=== PATIENT | male | born 1950 | race Caucasian/White ===

== ENCOUNTER 2019-03-07 06:00 | Inpatient (IN) | payer OTHER ==
--- NOTE | 2019-03-07 06:51 | CT ---
CT ABDOMEN AND PELVIS WITHOUT IV CONTRAST: INDICATIONS: History of UTI with hypertension, coronary artery disease, chronic kidney disease, GERD, and Cronin pl acement prior to arrival. FINDINGS: There are small bilateral pleural effusions and bibasilar atelectasis. There are layered gallstones within a mildly to moderately distended gallbladder. There is mild ascites surrounding the unopacifi ed liver. The spleen is slightly enlarged, measuring 14.9 cm. The liver measures 17.6 cm. There is prominent bilateral hydronephrosis. Exophytic, mildly hyperdense lesion involving the superior pole of the right kidney, measuring 1.3 cm, incompletely characterized. There is prominent distention of the bladder. No Cronin catheter is identified within the bladder. There is dilatation of the Cronin catheter within the penis. There is distention of the proximal penile, bulbar urethra. There is mild free fluid in the abdomen and pelvis. The colon and small bowel are of normal caliber. There is a normal appendix in the right lower quadr ant. There is scattered degenerative and osteoarthritic change. IMPRESSION: 1. Placement of the Cronin catheter within the penile urethra. Recommend repositioning. 2. Prominent distention of the bladder with prominent bilateral hydronephrosis is suspicious for meaghan dder outlet obstruction, likely from enlarged prostate. 3. Exophytic, mildly hyperdense lesion involving the superior pole of the right kidney, measuring 1. 3 cm, incompletely characterized. Follow-up renal ultrasound is recommended. 4. Mild hepatosplenomegaly. 5. Cholelithiasis with mild distention of the gallbladder. 6. Mild bilateral pleural effusions, ascites, and mild anasarca. Findings called to Dr. Armstrong at 6:43 a.m. on 03/07/2019. CODE CR POS:
--- NOTE | 2019-03-07 09:03 | CT ---
Exam: Pelvic CT without contrast COMPARISON: 03/07/2019 FINDINGS: Interval advancement of the Cronin catheter. Distal tip now appears to be a in the distal prosthetic u rethra. Urinary bladder continues to be distended. Small focus of air in the nondependent portion of the urinary bladder is noted. There is marked dilatation of the penile urethra small pockets of ai r attenuation. There is evidence of free fluid in the pelvis with evidence of pelvic and lower abdominal mesenteric fat stranding. Stable enlarged prostate gland. IMPRESSION: Slight interval advancement of the Cronin catheter. Distal tip is now within the distal pr osthetic urethra. Repositioning and advancement is recommended.
--- NOTE | 2019-03-07 09:21 | PDOC.FPRHP ---
- History of Present Illness Chief Complaint: Testicular pain History of Present Illness: Symptoms began acutely on 07/01/2018. He woke up and could not void, states that his penis was swollen. However, when questioned more about this admission, he states that on this event, he states that he chronically has a kaur catheter in place since July. He states that it should be changed (By Myron ) q monthly, but it has been replaced sometimes up to every 3 months. Had a new kaur placed on 02/27 and was told he had a UTI, was prescribed Keflex 500BID. . However, this procedure was not done here and we do not have records. On Tuesday (03/02) he began feeling bad and decreasing urinary output through his kaur, he was seen in the intermediate and states they disregarded his symptoms. Last night he went to medical in the intermediate and they decided to send him in. Upon arrival to the ED, they removed the kaur and had extreme difficulty replacing it. They were able to place one which is now draining orange/reddish urine. ED Course: Babb: Zosyn 2.25g, 2L NS, Morphine, Zofran. - Allergies/Adverse Reactions Allergies Allergy/AdvReac Type Severity Reaction Status Date / Time Sulfa (Sulfonamide Allergy Verified 03/07/19 11:05 Antibiotics) GRAPE JELLY Allergy Intermediate Hives Uncoded 03/07/19 17:52 - Home Medications Medication Instructions Recorded Confirmed Type Aspirin [Ecotrin] 81 mg PO DAILY 03/07/19 03/07/19 History Cephalexin 500 mg PO Q12H 03/07/19 03/07/19 History Ferrous Sulfate [Feosol] 325 mg PO BID 03/07/19 03/07/19 History Lisinopril 40 mg PO DAILY 03/07/19 03/07/19 History Omeprazole 20 mg PO DAILY 03/07/19 03/07/19 History Pravastatin Sodium [Pravachol] 20 mg PO HS 03/07/19 03/07/19 History Terazosin HCl 5 mg PO HS 03/07/19 03/07/19 History Triamcinolone Acetonide 1 applic TOP BID 03/07/19 03/07/19 History [Triamcinolone Acetonide 0.1% Lotion] Comments: asa TABLET : Strength - 81 mg : ORAL Patient Dose: 81 mg Oral once a day. benzoyl peroxide GEL (GRAM) : Strength - 10 % : TOPICAL Patient Dose: Unknown. keflex CAPSULE : Strength - 500 mg : ORAL Patient Dose: 500 mg Oral 2 times a day. ferrous sulfate TABLET : Strength - 325 mg (65 mg iron) : ORAL Patient Dose: 325 mg Oral 2 times a day. lisinopril TABLET : Strength - 40 mg : ORAL Patient Dose: 40 mg Oral once a day. omeprazole CAPSULE,DELAYED RELEASE (ENTERIC COATED) : Strength - 20 mg : ORAL Patient Dose: 20 mg Oral once a day. pravastatin TABLET : Strength - 20 mg : ORAL Patient Dose: 20 mg Oral once a day. terazosin CAPSULE : Strength - 5 mg : ORAL Patient Dose: 5 mg Oral once a day. triamcinolone CREAM (GRAM) : Strength - 0.1 % : TOPICAL Patient Dose: Unknown. - History PMHx: DC age 55, (2006) HTN CKD GERD PSHx: None FHx: Cancer - chest, lung Social: Denies smoking, etoh, or drug use. - Review of Systems General: reports: fever/chills. denies: weight/appetite/sleep changes, night sweats Eyes: denies: eye pain, vision changes ENT: denies: nasal congestion, rhinorrhea Respiratory: denies: cough, congestion, shortness of breath Cardiovascular: reports: chest pain, other (diaphoresis) Gastrointestinal: reports: abdominal pain. denies: nausea, vomiting, diarrhea, constipation Genitourinary: reports: dysuria, other (groin pain,). 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 Poor dentition, dry mucus membranes Neck: supple, FROM, no LAD, no thyromegaly Chest: no-tender to palpation, no lesions Heart: RRR, normal S1/S2, no murmurs/rubs/gallops, pulses present, no edema Lungs: CTAB, no respiratory distress, good air movement, no rales/rhonchi, no wheezing, no retractions Abdomen: soft, non-tender, bowel sounds present FMR H&P: Results - Labs Lab results: Laboratory Tests 03/07/19 03/07/19 03/07/19 03:45 03:45 03:45 WBC 17.8 H Hgb 11.1 L Hct 33.8 L Plt Count 350 Neutrophils % 91.5 H Sodium 132 L Potassium 3.4 L Chloride 94 L Carbon Dioxide 17 L Anion Gap 24 H BUN 90 H Creatinine 8.81 H Estimated GFR (MDRD) 6 Glucose 128 H Lactic Acid 4.1 H* - Radiology Interpretation Chest x-ray Status: report reviewed by me (No acute cardiopulmonary process.) CT scan - abdomen Status: report reviewed by me (1. Placement of the Kaur catheter within the penile urethra. Recommend repositioning. 2. Prominent distention of the bladder with prominent bilateral hydronephrosis is suspicious for meaghan dder outlet obstruction, likely from enlarged prostate. 3. Exophytic, mildly hyperdense lesion involving the superior pole of the right kidney, measuring 1. 3 cm, incompletely characterized. Follow-up renal ultrasound is recommended. 4. Mild hepatosplenomegaly. 5. Cholelithiasis with mild distention of the gallbladder. 6. Mild bilateral pleural effusions, ascites, and mild anasarca) FMR H&P: A/P - Plan Sepsis 2/2 UTI 2/2 Obstructive Uropathy IV Antibiotics: Meropenem (03/07) Vancomycin (03/07) Was given Zosyn in ED. (03/07) IV Fluids: LR 125mL Repeat lactic acid stat AM CBC, CMP, Procal Urology consulted, appreciate recommendations HTN Restart Lisinopril 40mg ASA 81mg HLD Pravastatin 20mg BPH Terazosin 5mg GERD Omeprazole 20mg Disposition/LOS: Dispo: Inpatient, stable VTE: SCDs Code: Full Diet: Regular FMR H&P: Upper Level - Pertinent history 68 year old male presents from intermediate with urinary retention and abdominal pain since Tuesday. Patient with chronic indwelling kaur catheter since July after hospitalization for urinary retention secondary to BPH. Patient reports that he his supposed to have his kaur changed every 2 months, but that rarely happens in the intermediate. He was having dysuria, and so he had a UA done which revealed a UTI. His kaur was changed out on 02/27 and he was started on Keflex. The pain progressed and was unbearable by Tuesday. He started to feel so bad, that he wasn't even able to make it to gets his medications. He was brought in to [place] ED and subsequently transferred to [place] for sepsis 2/[address]/ Abdomen was performed which revealed kaur catheter inflated in urethra. An attempt was made at repositioning and was unsuccessful, so Urology was consulted and via cystoscopy was able to place kaur catheter successfully. Urine immediately started draining, and patient is already feeling much better. He endorses some chest pain associated with riding along via transport. He does endorses weakness, but denies muscle aches or cramps. - Pertinent findings General: Alert and oriented. No acute distress. In metal handcuffs HEENT: Left eye made of glass, ptosis of left eye Card: RRR, No murmurs Resp: CTA-BL, No acute respiratory distress Abd: Mildly tender to palpation in suprapubic region. Soft. Ext: No edema, pulses 2+ Skin: Warm and dry - Plan Date/Time: 03/07/19918 IRosa , have evaluated this patient and agree with findings/plan as outlined by quality assurance intern resident. Pertinent changes/additions are listed here. Sepsis 2/2 UTI from obstructive uropathy (BPH) - WBC 17, LA 4.1 - Fluid resuscitation in outside ED - Patient started on Zosyn in ED, will switch to meropenem and vancomycin given complicated UTI in setting of obstructive uropathy with resulting renal failure - Will adjust antibiotics pending urine culture results - Procalcitonin significantly elevated at 22 - Continue IVF - Will start flomax - Will start patient on finesteride which may help to decrease size of prostate over time; will obtain baseline PSA prior to initiation of finesteride - Continue to monitor kidney function - Kaur catheter in place and draining effectively at this time - Repeat LA Acute renal failure 2/2 obstructive uropathy - Significantly enlarged prostate - Fluid resuscitation - No electrolyte derangements at this point in time - Continue to monitor electrolytes and kidney function - Urology consulted; appreciate recs - Given complicated UTI 2/2 obstructive uropathy, will initiate broad spectrum antibiotics with meropenem and vancomycin - Will start flomax - Will start finesteride with intent to decrease size of prostate over time; will obtain baseline PSA prior to initiation of medication - Patient with CKD at baseline, but not certain what stage CKD - Uncertain of baseline HTN: - Continue home BP medications CAD - Continue home medications GERD - Continue home medications DVT PPX: SCD's Code Status: Full Dispo: Admit to medical. Anticipate LOS >48 hours.
[2019-03-07] MEDS ORDERED: Acetaminophen 325 MG TAB PO PRN (11:38)
[2019-03-07] MEDS ORDERED: Senokot S 8.6-50 MG TAB PO PRN (11:38)
--- NOTE | 2019-03-07 11:43 | CON ---
DATE OF CONSULTATION: 03/07/2019 REASON FOR CONSULTATION: Urinary retention. HISTORY OF PRESENT ILLNESS: Mr. Mckenzie is a 68-year-old male with history of BPH, followed by [facility] Urology, workup in progress for TURP, currently on hold due to workup for cardiac issues. He has had chronic indwelling Cronin catheter, switched every 4 weeks until surgical intervention. He states that the catheter was changed on February 27 has been draining, however, has decreased output for the last few days. Therefore, he presented to the emergency room. CT of the abdomen and pelvis was obtained demonstrating bilateral hydro with Cronin catheter in the penile urethra. Catheter was subsequently removed by ER Urology consultation advised secondary to above. He states that there is no pain with catheter placement by the previous staff, however, has had occasional decreased output from the Cronin catheter per the patient. Currently, he denies significant discomfort, appears comfortable. Cooperative to physical exam. He is a prisoner, guards at bedside. PAST MEDICAL HISTORY: CAD hypertension, chronic kidney disease, history of hematuria, BPH. PAST SURGICAL HISTORY: None. PSYCHIATRIC HISTORY: None. SOCIAL HISTORY: Denies alcohol use or illicit drugs. No smoking history. Lives at home. Currently in longterm facility. ALLERGIES: PEANUT BUTTER AND SULFA. HOME MEDICATIONS: Include: 1. Baby aspirin. 2. Benzoyl peroxide. 3. Cephalexin 500 mg b.i.d. for UTI. 4. Iron. 5. Lisinopril. 6. Omeprazole. 7. Pravastatin. 8. Terazosin 5 mg. 9. Triamcinolone cream. PHYSICAL EXAMINATION: VITAL SIGNS: Stable. His pain was rated at 10. Currently, he appears quite comfortable. HEENT: Grossly unremarkable. Poor dentition. Left eye is glassed. HEART: Regular rate. LUNGS: Clear. ABDOMEN: Suprapubic distention noted. No rigidity. No rebound. : Meatus is grossly unremarkable, testes descended. EXTREMITIES: No cyanosis, clubbing, or edema. NEUROLOGIC: No gross focal deficits. PERTINENT LABORATORY DATA: Previous urine culture demonstrated Pseudomonas sensitive to Levaquin, tobramycin, and Citrobacter as well. He was given Zosyn in the ER. CT of the abdomen and pelvis without contrast demonstrates Cronin catheter in the penile urethra, spleen is slightly enlarged, mildly exophytic hyperdense right renal cyst measuring 1.3 cm, incompletely characterized. Prominent distention of the bladder. Cronin catheter not seen within the bladder, balloon seen in the penile urethra with distention of the proximal penile bulbar urethra. I passed a 16-Swiss Cronin catheter and able to pass it without significant issues. 10 mL insufflated no pain. Decreased urine output. As such, I irrigated the Cronin, which irrigates however, urine output is not robust. Therefore, stat CT of the pelvis advised to check placement of Cronin catheter. IMPRESSION: 1. Mr. Mckenzie is a 68-year-old male with history of coronary artery disease. 2. History of BPH, chronic retention with indwelling Cronin catheter every 4 weeks change at the facility, followed by [facility] Urology, workup in progress for transurethral resection of the prostate. The patient currently presents with urinary tract infection, malfunctioning Cronin catheter, likely traumatic pull per the patient versus chronic displacement of urethral Cronin catheter. There is no significant hematuria, but pyocystitis noted with Cronin catheter placement. Await CT. Recommend diaz culture and appropriate antibiotic therapy. Addendum, stat CT reviewed demonstrating Cronin catheter again in the penile urethra. This was deflated, I did try to pass a coud 20 Swiss, was able to make my way to the level of the prostate however difficulty passing. Therefore patient transition to bedside cystoscopy. Please see procedure note Job ID: [id number] MTDD
--- NOTE | 2019-03-07 12:06 | HP ---
I have discussed the case with Dr. Lucie Aaron. I have examined the patient. I agree with her assessment and plan. HISTORY OF PRESENT ILLNESS: Briefly, Mr. Mckenzie is a 68-year-old man, [facility], who has had symptoms of BPH since last June. He stated that his initial symptom was the fact that he "could not pee." Over the last 9 months, he has had Cronin catheter placement for his BPH causing urinary retention. They were unable to re-access his Cronin earlier today and he was transferred to our system. A Cronin has been placed and he was notable on CT exam to have a significant bilateral uropathy secondary to his BPH. He also appears to have urinary tract infection and possible sepsis and will be admitted for antibiotics and Urology consultation. PHYSICAL EXAMINATION: VITAL SIGNS: He is awake and alert. His blood pressure is currently 100/40, pulse rate is 85, respirations 16. He is currently afebrile and his room air O2 saturation is 100%. GENERAL: Again, he is oriented, awake and alert. EAR, NOSE, AND THROAT: No erythema or exudate. NECK: Supple. CARDIAC: Heart rhythm, regular. No gallop or murmur noted. LUNGS: Clear. No rales or wheezes. No respiratory distress. ABDOMEN: Flat and soft. No guarding, rebound, or rigidity. NEUROLOGIC: No focal deficits. LABORATORY RESULTS: Still pending. IMAGING STUDIES: His abdominal CT does show prominent distention of the bladder with prominent bilateral hydronephrosis, suspicious for bladder outlet obstruction, likely secondary to BPH. ASSESSMENT: Bilateral uropathy secondary to BPH with possible urinary tract infection and sepsis. PLAN: Admit. Place Cronin. Consult Urology. Begin broad-spectrum antibiotics. Job ID: [id number]
--- NOTE | 2019-03-07 13:17 | OP ---
DATE OF PROCEDURE: 03/07/2019 Bedside Local procedure PREOPERATIVE DIAGNOSES: 1. History of benign prostatic hyperplasia, recurrent urinary tract infection. 2. Malplaced urethral Cronin catheter POSTOPERATIVE DIAGNOSES: 1. History of benign prostatic hyperplasia, recurrent urinary tract infection. 2. Malplaced urethral Cronin catheter. PROCEDURE PERFORMED: Bedside flexible cystoscopy, 18-Swedish Councill tip Cronin catheter placement over guidewire. ANESTHESIA: Local. DESCRIPTION OF PROCEDURE: A flexible cystoscope was passed after sterile prep. Upon entering the urethra, there was [id number] debris within the urethra. Visualization was poor. However, I was able to find my way to the level of the prostatic urethra. Evaluation of the penile urethra was suboptimal due to significant debris. The prostate urethra was identified, large prostate noted. The scope was passed to the level of the bladder and a 0.35 Super Stiff wire was placed into the bladder. A 20-Swedish Hume tip Cronin catheter was passed over a guidewire assist and demonstrating purulent urine output. He tolerated the procedure well. Catheter was secured. 10 mL insufflated. Job ID: [id number] [facility]
[2019-03-07 13:35] LABS: Lactic Acid 1.2 mmol/L (0.5-2.2)
[2019-03-07] MEDS ORDERED: Meropenem 1 GM in Sodium Chloride 0.9% 100 ML IVPB SCH (14:00)
[2019-03-07] MEDS ORDERED: Heparin 1,000 UNITS/ML VIAL ONE (15:00)
[2019-03-07 15:05] VITALS: BMI 25.0
[2019-03-07] MEDS ORDERED: Vancomycin HCl 1.75 GM in Sodium Chloride 0.9% 500 ML IVPB SCH ×2 (16:00→21:00)
[2019-03-07] MEDS: Lactated Ringer's 1,000 ML IV SCH ×2 (16:36→20:09)
[2019-03-07] MEDS ORDERED: MEROPENEM 1 GM/50 ML 1 GM in Premix Bag 1 BAG IVPB SCH (17:00)
[2019-03-07] MEDS: Tamsulosin HCl 0.4 MG CAP PO SCH (20:08)
[2019-03-07] MEDS: Phenazopyridine HCl 97.5 MG TABLET PO PRN (22:49)
[2019-03-08] MEDS ORDERED: Meropenem 500 MG in Sodium Chloride 0.9% 100 ML IVPB SCH (05:00)
[2019-03-08] MEDS: Lactated Ringer's 1,000 ML IV SCH ×4 (05:20→20:23)
[2019-03-08] MEDS: Meropenem 500 MG in Sodium Chloride 0.9% 100 ML IVPB SCH ×4 (05:27→17:59)
--- NOTE | 2019-03-08 05:47 | PDOC.FM ---
- Subjective Subjective: Patient doing well this morning, afebrile overnight. Denies cp, sob. Reports that his pain has improved, although he is till having some tenderness to his abdomen. Urine output appears bloody, likely 2/2 trauma from kaur yesterday. - Objective Vital Signs & Weight: Vital Signs (12 hours) Temp Pulse Resp BP Pulse Ox 03/08/19 04:00 98.0 F 90 20 102/60 94 L 03/08/19 00:00 99.0 F 87 20 102/60 94 L 03/07/19 19:52 94 L 03/07/19 19:03 98.2 F 95 20 113/61 94 L Weight Weight 81.448 kg I&O: 03/06/19 03/07/19 03/08/19 06:59 06:59 06:59 Intake Total 810 Output Total 2350 Balance -1540 Result Diagrams: 03/08/19 06:17 03/08/19 06:17 Phys Exam - Physical Examination Constitutional: NAD HEENT: moist MMs Left eye-glass Neck: supple, full ROM Respiratory: no wheezing, clear to auscultation bilateral Cardiovascular: RRR, no significant murmur Gastrointestinal: positive bowel sounds ttp lower abdomen Musculoskeletal: no edema, pulses present Neurological: normal sensation, moves all 4 limbs Lymphatic: no nodes Psychiatric: normal affect, A&O x 3 Skin: normal turgor, cap refill <2 seconds Dx/Plan (1) Obstructive uropathy Code(s): N13.9 - OBSTRUCTIVE AND REFLUX UROPATHY, UNSPECIFIED Status: Acute (2) BPH (benign prostatic hyperplasia) Code(s): N40.0 - BENIGN PROSTATIC HYPERPLASIA WITHOUT LOWER URINRY TRACT SYMP Status: Acute (3) Sepsis due to urinary tract infection Code(s): A41.9 - SEPSIS, UNSPECIFIED ORGANISM; N39.0 - URINARY TRACT INFECTION, SITE NOT SPECIFIED Status: Acute (4) GERD (gastroesophageal reflux disease) Code(s): K21.9 - GASTRO-ESOPHAGEAL REFLUX DISEASE WITHOUT ESOPHAGITIS Status: Acute (5) Acute on chronic kidney failure Code(s): N17.9 - ACUTE KIDNEY FAILURE, UNSPECIFIED; N18.9 - CHRONIC KIDNEY DISEASE, UNSPECIFIED Status: Acute (6) CAD (coronary artery disease) Code(s): I25.10 - ATHSCL HEART DISEASE OF [place] CORONARY ARTERY W/O ANG PCTRS Status: Acute (7) HTN (hypertension) Code(s): I10 - ESSENTIAL (PRIMARY) HYPERTENSION Status: Acute - Plan Plan: 68M with PMHx of BPH, CKD (unknown stage), HTN, CAD, [place] (2006) admitted with sepsis 2/2 UTI 2/2 obstructive uropathy 2/2 BPH and acute on chronic renal failure #Sepsis 2/2 UTI from obstructive uropathy (BPH) - WBC 17>18.4 - LA 4.1>1.2 with fluids - Fluid resuscitation in outside ED - Patient started on Zosyn in ED, switched to meropenem and vancomycin given complicated UTI in setting of obstructive uropathy with resulting renal failure , continue - urine culture results pending, will alter abx accordingly - Procalcitonin significantly elevated at 22 then 27>28.36, will continue to monitor - Continue IVF - flomax started - finasteride started to help to decrease size of prostate over time -baseline PSA 8.97 - Continue to monitor kidney function -creatinine 8.81>6.19 - Kaur catheter in place and draining effectively at this time - Continue to follow CBC, LA, and procal #Acute renal failure 2/2 obstructive uropathy - Significantly enlarged prostate - creatinine 8.81>6.19 - Fluid resuscitation - No electrolyte derangements at this point in time - Continue to monitor electrolytes and kidney function - Urology consulted; appreciate recs - Given complicated UTI 2/2 obstructive uropathy, started on broad spectrum antibiotics with meropenem and vancomycin - flomax started - finasteride started - Patient with CKD at baseline, but not certain what stage #CKD - Uncertain of baseline, patient has unclear history #HTN: - BPs 100s-110s/60s, hold home meds at this time #CAD - Continue home medications #GERD - Continue home medications DVT PPX: SCD's Code Status: Full Dispo: Medical floor for IV abx for sepsis 2/2 uti 2/2 obstructive uropathy. Nephrology consulted, following recs. Anticipate LOS >48 hours.
[2019-03-08 06:44] LABS: #Lymphocytes 0.4 thou/uL (1.20-3.40); #Monocytes 0.7 thou/uL (0.11-0.59); #Neutrophils 17.2 thou/uL (1.40-6.50); %Eosinophils 0.2 % (0.0-10.0); %Lymphocytes 2.3 % (21.0-51.0); %Monocytes 3.9 % (0.0-10.0); %Neutrophils 93.7 % (42.0-75.0); Hemoglobin 9.4 g/dL (14.0-18.0); Mean Corpuscular HGB CONC 33.5 g/dL (32.0-36.0); Mean Corpuscular Hemoglobin 29.8 pg (27.0-31.0); Mean Corpuscular Volume 88.9 fL (78.0-98.0); Mean Platelet Volume 8.6 fL (7.4-10.4); Platelet Count 313 thou/uL (130-400); RBC Distribution Width 13.1 % (11.5-14.5); Red Blood Cell (RBC) Count 3.14 mill/uL (4.70-6.10); White Blood Cell (WBC) Count 18.4 thou/uL (4.8-10.8)
[2019-03-08 07:08] LABS: Anion Gap 18 mmol/L (10-20); BUN (Urea Nitrogen) 81 mg/dL (8.4-25.7); Calc. Creatinine Clearance 14 mL/min (70-130); Calcium 8.1 mg/dL (7.8-10.44); Carbon Dioxide 20 mmol/L (23-31); Chloride 104 mmol/L (98-107); Estimated GFR-MDRD 9; Glucose 109 mg/dL (80-115); Potassium 3.7 mmol/L (3.5-5.1); Sodium 138 mmol/L (136-145)
--- NOTE | 2019-03-08 07:42 | PRG ---
DATE OF SERVICE: 03/08/2019 SUBJECTIVE: The patient without complaints, feels well, appreciative of assistance yesterday regarding Cronin catheter placement. OBJECTIVE: VITAL SIGNS: Stable. He is afebrile. ABDOMEN: Soft. No rigidity. No rebound. : Cronin catheter adequately secured, demonstrating concentrated yellow urine with some sediment as expected. One bowel movement. PERTINENT LABORATORY DATA: Creatinine has decreased from 8.8 to 6.1. White count 18, hemoglobin 9.4, and platelet 319. Urine culture pending. MEDICATIONS: The patient is on, 1. Meropenem. 2. Vancomycin. IMPRESSION AND PLAN: 1. A 68-year-old prisoner, followed by [facility] Urology, workup in progress for transurethral resection of the prostate. The patient in the meantime has been getting his catheter changed every 4 weeks. Presented with urinary retention, pyocystitis with bilateral hydronephrosis and significant postvoid residual. Bedside cystoscopy yesterday demonstrated significant debris in the urethra, Cronin catheter placed over guidewire assist. The pre-existing Cronin catheter was inflated in his penile, urethra, chronicity unknown; however, it is likely that he has had misplaced catheter for quite some time as there is dilation of the urethra. 2. Acute renal failure, with bilateral hydronephrosis due to urinary retention, improving. The patient needs to be monitored for basic metabolic panel, postobstructive diuresis. He appears to be clinically stable. RECOMMENDATIONS: Await cx sen , the patient can be discharged back to facility, when medically stable and renal function improved. Urine culture must be finalized with appropriate antibiotic therapy. From urologic perspective, I recommend a minimum of 21 days of antibiotics as he presents with complicated UTI. Case Management consulted as he needs close followup with [facility] Urology, TURP is planned per pt however, stress test is pending. Stress test was per patient deferred as he presented with symptoms of UTI. The patient must have appointment with [facility] prior to discharge for coordination and continuity of care. The patient agrees. I will be off service until next Tuesday, on-call Urology will cover the patient for p.r.n. issues. Job ID: [id number] MTDD
[2019-03-08] MEDS: Finasteride 5 MG TAB PO SCH (08:58)
[2019-03-08 09:43] LABS: Vancomycin, Random 15.9 ug/mL (See Comment)
--- NOTE | 2019-03-08 12:01 | PRG ---
DATE OF SERVICE: 03/08/2019 Mr. Mckenzie had been admitted yesterday with urinary tract infection, sepsis, and bilateral obstructive uropathy secondary to BPH. He looks remarkably better this morning. He is currently afebrile with a blood pressure of 135/72. He is receiving broad-spectrum antibiotics. He has been seen by Urology and will at some point have a laser TURP. In the event clinically, he is markedly better from yesterday and we will continue with his medical management. Job ID: [id number]
[2019-03-08 13:49] LABS: Iron 13 ug/dL (65-175); Iron Binding Capacity, Total 90 mcg/dL (261-462); Transferrin, Serum 72 mg/dL (163-344)
[2019-03-08] MEDS: Ferrous Sulfate 325 MG TAB PO SCH (17:59)
[2019-03-08] MEDS: Tamsulosin HCl 0.4 MG CAP PO SCH (20:19)
[2019-03-08] MEDS ORDERED: Vancomycin HCl 1.75 GM in Sodium Chloride 0.9% 500 ML IVPB SCH (21:00)
[2019-03-09] MEDS: Meropenem 500 MG in Sodium Chloride 0.9% 100 ML IVPB SCH ×2 (04:20→16:19)
[2019-03-09] MEDS: Lactated Ringer's 1,000 ML IV SCH ×4 (04:22→18:30)
--- NOTE | 2019-03-09 05:56 | PDOC.FM ---
- Subjective Subjective: Patient doing well this morning. Reports that his pain has improved, though he has occasional lower abdominal pain when getting up out of bed. Agreeable to current plan of care. - Objective Vital Signs & Weight: Vital Signs (12 hours) Temp Pulse Resp BP BP Pulse Ox 03/09/19 04:00 98.0 F 92 18 128/63 93 L 03/09/19 00:16 98.1 F 95 18 113/60 92 L 03/08/19 20:00 97.9 F 97 18 141/71 H 94 L Weight Weight 81.448 kg I&O: 03/07/19 03/08/19 03/09/19 06:59 06:59 06:59 Intake Total 2810 2600 Output Total 4250 2250 Balance -1440 350 Result Diagrams: 03/09/19 05:36 03/09/19 05:36 Phys Exam - Physical Examination Constitutional: NAD HEENT: moist MMs poor dentition, l eye glass Neck: supple, full ROM Respiratory: no wheezing, clear to auscultation bilateral Cardiovascular: RRR, no significant murmur Gastrointestinal: soft ttp lower abdomen Musculoskeletal: no edema, pulses present Neurological: normal sensation, moves all 4 limbs Lymphatic: no nodes Skin: normal turgor, cap refill <2 seconds Dx/Plan (1) Obstructive uropathy Code(s): N13.9 - OBSTRUCTIVE AND REFLUX UROPATHY, UNSPECIFIED Status: Acute (2) BPH (benign prostatic hyperplasia) Code(s): N40.0 - BENIGN PROSTATIC HYPERPLASIA WITHOUT LOWER URINRY TRACT SYMP Status: Acute (3) Sepsis due to urinary tract infection Code(s): A41.9 - SEPSIS, UNSPECIFIED ORGANISM; N39.0 - URINARY TRACT INFECTION, SITE NOT SPECIFIED Status: Acute (4) GERD (gastroesophageal reflux disease) Code(s): K21.9 - GASTRO-ESOPHAGEAL REFLUX DISEASE WITHOUT ESOPHAGITIS Status: Acute (5) Acute on chronic kidney failure Code(s): N17.9 - ACUTE KIDNEY FAILURE, UNSPECIFIED; N18.9 - CHRONIC KIDNEY DISEASE, UNSPECIFIED Status: Acute (6) CAD (coronary artery disease) Code(s): I25.10 - ATHSCL HEART DISEASE OF [place] CORONARY ARTERY W/O ANG PCTRS Status: Acute (7) HTN (hypertension) Code(s): I10 - ESSENTIAL (PRIMARY) HYPERTENSION Status: Acute - Plan Plan: 68M with PMHx of BPH, CKD (unknown stage), HTN, CAD, [place] (2006) admitted with sepsis 2/2 UTI 2/2 obstructive uropathy 2/2 BPH and acute on chronic renal failure #Sepsis 2/2 UTI from obstructive uropathy (BPH) - WBC 17>18.4>24.5, though patient continues to look better clinically - LA 4.1>1.2 with fluids - Fluid resuscitation in outside ED - Patient started on Zosyn in ED, switched to meropenem and vancomycin given complicated UTI in setting of obstructive uropathy with resulting renal failure , continue -pharmacy to dose, vanc troughs ordered - urine culture results pending at [place] [facility] ([phone], micro lab [phone]) , currently growing >100k gram neg rods x 3 types, will alter abx accordingly when further growth/sensitivities are done - Procalcitonin significantly elevated at 22 then 27>28.36>14.25, will continue to monitor - Continue IVF - flomax started - finasteride started to help to decrease size of prostate over time -baseline PSA 8.97 - Continue to monitor kidney function -creatinine 8.81>6.19 - Cronin catheter in place and draining effectively at this time; urine orange in color but patient is on phenazopyridine - Urology, Dr. Mackay, saw patient 03/08 and rec: minimum 21 day antibiotic therapy and to have patient make appointment with [facility] urology prior to discharge for f/u on TURP. - Continue to follow CBC, LA, and procal #Acute renal failure 2/2 obstructive uropathy - Significantly enlarged prostate - creatinine 8.81>6.19>3.65 - Fluid resuscitation - No electrolyte derangements at this point in time - Continue to monitor electrolytes and kidney function - Urology consulted; see recs above - Given complicated UTI 2/2 obstructive uropathy, started on broad spectrum antibiotics with meropenem and vancomycin - flomax started - finasteride started - Patient with CKD at baseline, but not certain what stage #Anemia -H/H: 9.6/29.3 -iron 13, TIBC 90, transferrin 72, ferritin 798.92 -likely anemia of chronic disease, but possible mixed picture with iron of 13 ( low) -ferrous sulfate 325mg started today, continue to monitor #CKD - Uncertain of baseline, patient has unclear history #HTN: - BPs 110s-140s/60s-70s, continue to hold home meds at this time #CAD - Continue home medications #GERD - Continue home medications DVT PPX: SCD's Code Status: Full Dispo: Medical floor for IV abx for sepsis 2/2 uti 2/2 obstructive uropathy. Nephrology consulted, following recs.
[2019-03-09 06:14] LABS: Anion Gap 13 mmol/L (10-20); BUN (Urea Nitrogen) 57 mg/dL (8.4-25.7); Calc. Creatinine Clearance 23 mL/min (70-130); Calcium 8.2 mg/dL (7.8-10.44); Carbon Dioxide 22 mmol/L (23-31); Chloride 106 mmol/L (98-107); Estimated GFR-MDRD 17; Glucose 112 mg/dL (80-115); Potassium 3.2 mmol/L (3.5-5.1); Sodium 138 mmol/L (136-145)
[2019-03-09 06:37] LABS: Band 12 % (5-11); Hemoglobin 9.6 g/dL (14.0-18.0); Lymphocytes 1 % (21-51); MDiff Complete? YES; Mean Corpuscular HGB CONC 32.8 g/dL (32.0-36.0); Mean Corpuscular Hemoglobin 29.2 pg (27.0-31.0); Mean Corpuscular Volume 89.2 fL (78.0-98.0); Monocytes 2 % (0-10); Neutrophil 85 % (42-75); Platelet Count 349 thou/uL (130-400); RBC Distribution Width 13.2 % (11.5-14.5); Red Blood Cell (RBC) Count 3.29 mill/uL (4.70-6.10); White Blood Cell (WBC) Count 24.5 thou/uL (4.8-10.8)
[2019-03-09 09:13] LABS: Vancomycin, Random 29.7 ug/mL (See Comment)
[2019-03-09] MEDS ORDERED: Potassium Chloride 20 MEQ TAB PO SCH (09:15)
[2019-03-09] MEDS: Finasteride 5 MG TAB PO SCH (09:47)
[2019-03-09] MEDS: Ferrous Sulfate 325 MG TAB PO SCH ×2 (09:47→16:18)
[2019-03-09 10:13] LABS: ALT (SGPT) 8 U/L (8-55); AST (SGOT) 15 U/L (5-34); Alkaline Phosphatase 84 U/L (40-150); Anion Gap 18 mmol/L (10-20); BUN (Urea Nitrogen) 58 mg/dL (8.4-25.7); Bilirubin, Total 0.5 mg/dL (0.2-1.2); Calc. Creatinine Clearance 24 mL/min (70-130); Carbon Dioxide 22 mmol/L (23-31); Chloride 107 mmol/L (98-107); Estimated GFR-MDRD 17; Globulin 3.9 g/dL (2.4-3.5); Glucose 125 mg/dL (80-115); Potassium 3.5 mmol/L (3.5-5.1); Protein, Total 6.9 g/dL (5.8-8.1); Sodium 143 mmol/L (136-145)
--- NOTE | 2019-03-09 10:22 | PRG ---
DATE OF SERVICE: 03/09/2019 Mr. Mckenzie is fine this morning. He is afebrile, resting comfortably. We are still awaiting culture results and we will keep him on broad-spectrum by antibiotics until we can deescalate based on the culture results. He did have an elevated white count this morning, but I feel this is likely going to drop back down tomorrow. Clinically, he is much better and afebrile. Job ID: [id number]
[2019-03-09 10:32] LABS: Hemoglobin 10.8 g/dL (14.0-18.0); Mean Corpuscular Hemoglobin 29.3 pg (27.0-31.0); Mean Corpuscular Volume 88.7 fL (78.0-98.0); Mean Platelet Volume 7.8 fL (7.4-10.4); Platelet Count 487 thou/uL (130-400); RBC Distribution Width 13.2 % (11.5-14.5); Red Blood Cell (RBC) Count 3.69 mill/uL (4.70-6.10); White Blood Cell (WBC) Count 33.8 thou/uL (4.8-10.8)
[2019-03-09 10:56] LABS: Band 11 % (5-11); Lymphocytes 4 % (21-51); MDiff Complete? YES; Monocytes 3 % (0-10); Neutrophil 82 % (42-75); Platelet Morphology Comment Appears Increased; Polychromasia SLIGHT = 2-3 cells (100X) (0-2/hpf)
[2019-03-09] MEDS: Ondansetron ODT 4 MG TAB PO PRN (16:18)
--- NOTE | 2019-03-09 18:18 | PRG ---
DATE OF SERVICE: 03/09/2019 SUBJECTIVE: The patient states he is feeling fine. He is having mild bladder spasms occasionally and a little bit of burning with urine around his catheter, but otherwise states that he is not having any major complaints or pain. He denied wanting to take any type of antispasmodics or something for bladder spasms. His catheter has been secured, and he is otherwise stated that he has had no problems with catheter drainage. OBJECTIVE: VITAL SIGNS: Temperature 97.5, pulse 90, respirations 18, blood pressure 116/63, and saturation 95% on room air. GENERAL: In no apparent distress, communicative, alert. CARDIOVASCULAR: Regular rate and rhythm. ABDOMEN: Soft, nontender, and nondistended. Positive bowel sounds. : Cronin catheter in place with an orange colored urine without clots or turbidity. Catheter secured. EXTREMITIES: No clubbing, cyanosis, or edema. LABORATORY EVALUATION: Full set of labs is in the [employer] system, which I have reviewed. Of note, patient's white count is 33,800. Creatinine of 3.54. Urine culture is growing gram-negative rods of multiple speciations. Blood cultures are currently negative. ASSESSMENT AND PLAN: A 68-year-old white male with severe urinary retention and acute kidney injury with misplaced catheter, which is now in the correct location, draining well. There did not appear to be any type of turbidity or significant problems of catheter drainage. The patient's creatinine is slightly improving. White count is increasing, which is somewhat concerning. There may be another etiology of the patient's elevation in white count. I would consider further workup from the Primary Team regarding possible cardiac cultures, pulmonary, or other sources of infection. For now, I would recommend continuation of the Cronin catheter. Do not remove as the patient cannot have a catheter replaced without cystoscopic guidance. Dr. Fields will be seeing the patient and Dr. Mackay instead over the weekend. Dr. Mackay will resume care on Tuesday if the patient is still in the hospital. Job ID: [id number]
[2019-03-09] MEDS ORDERED: Promethazine 25 MG TAB PO SCH (19:31)
[2019-03-09] MEDS: Tamsulosin HCl 0.4 MG CAP PO SCH (20:12)
[2019-03-09] MEDS: Pantoprazole 40 MG VIAL IVP SCH (20:12)
[2019-03-09] MEDS ORDERED: Vancomycin HCl 1.25 GM in Sodium Chloride 0.9% 250 ML 250 ML IVPB SCH (21:00)
[2019-03-10] MEDS: Lactated Ringer's 1,000 ML IV SCH ×3 (02:06→16:50)
[2019-03-10] MEDS: Ondansetron ODT 4 MG TAB PO PRN ×2 (03:06→09:32)
[2019-03-10] MEDS: Meropenem 500 MG in Sodium Chloride 0.9% 100 ML IVPB SCH (04:11)
[2019-03-10 06:23] LABS: Anion Gap 15 mmol/L (10-20); BUN (Urea Nitrogen) 46 mg/dL (8.4-25.7); Calc. Creatinine Clearance 35 mL/min (70-130); Calcium 8.6 mg/dL (7.8-10.44); Carbon Dioxide 22 mmol/L (23-31); Chloride 110 mmol/L (98-107); Estimated GFR-MDRD 28; Glucose 112 mg/dL (80-115); Potassium 3.8 mmol/L (3.5-5.1); Sodium 143 mmol/L (136-145)
--- NOTE | 2019-03-10 06:35 | PDOC.FM ---
- Subjective Subjective: Pt has been vomiting since 4 yesterday afternoon and has had runny BM. He has not been eating well. - Objective MAR Reviewed: Yes Vital Signs & Weight: Vital Signs (12 hours) Temp Pulse Resp BP BP Pulse Ox 03/10/19 04:00 97.6 F 79 18 146/74 H 93 L 03/10/19 00:00 98.1 F 87 18 149/79 H 95 03/09/19 20:00 98.0 F 83 18 135/77 96 03/09/19 19:39 96 Weight Weight 81.448 kg I&O: 03/08/19 03/09/19 03/10/19 06:59 06:59 06:59 Intake Total 2810 4700 1933 Output Total 4250 4000 1000 Balance -1440 700 933 Result Diagrams: 03/10/19 05:38 03/10/19 05:38 Phys Exam - Physical Examination Constitutional: NAD HEENT: PERRLA, moist MMs Neck: full ROM Respiratory: clear to auscultation bilateral Cardiovascular: RRR, no significant murmur Gastrointestinal: soft, non-tender, positive bowel sounds Musculoskeletal: no edema, pulses present Neurological: moves all 4 limbs Psychiatric: normal affect Skin: no rash Dx/Plan (1) Obstructive uropathy Code(s): N13.9 - OBSTRUCTIVE AND REFLUX UROPATHY, UNSPECIFIED Status: Acute (2) Acute on chronic kidney failure Code(s): N17.9 - ACUTE KIDNEY FAILURE, UNSPECIFIED; N18.9 - CHRONIC KIDNEY DISEASE, UNSPECIFIED Status: Acute (3) Sepsis due to urinary tract infection Code(s): A41.9 - SEPSIS, UNSPECIFIED ORGANISM; N39.0 - URINARY TRACT INFECTION, SITE NOT SPECIFIED Status: Acute (4) Anemia Code(s): D64.9 - ANEMIA, UNSPECIFIED Status: Acute (5) CAD (coronary artery disease) Code(s): I25.10 - ATHSCL HEART DISEASE OF [place] CORONARY ARTERY W/O ANG PCTRS Status: Acute (6) GERD (gastroesophageal reflux disease) Code(s): K21.9 - GASTRO-ESOPHAGEAL REFLUX DISEASE WITHOUT ESOPHAGITIS Status: Acute (7) HTN (hypertension) Code(s): I10 - ESSENTIAL (PRIMARY) HYPERTENSION Status: Acute - Plan Plan: 68M with PMHx of BPH, CKD (unknown stage), HTN, CAD, [place] (2006) admitted with sepsis 2/2 UTI 2/2 obstructive uropathy 2/2 BPH and acute on chronic renal failure 1. Sepsis 2/2 UTI from obstructive uropathy (BPH) - WBC 17>18.4>24.5>10.6, though patient continues to look better clinically - LA 4.1>1.2 with fluids - Fluid resuscitation in outside ED - Patient started on Zosyn in ED, switched to meropenem and vancomycin given complicated UTI in setting of obstructive uropathy with resulting renal failure. Stopped and started on Levaquin -pharmacy to dose, vanc troughs ordered - urine culture was a contaminate. Will transition to PO Abx today. - Procalcitonin significantly elevated at 22 then 27>28.36>14.25>6.53 , will continue to monitor - Continue IVF - flomax started - finasteride started to help to decrease size of prostate over time -baseline PSA 8.97 - Continue to monitor kidney function -creatinine 8.81>6.19>3.65>2.36 - Cronin catheter in place and draining effectively at this time; urine orange in color but patient is on phenazopyridine - Urology, Dr. Mackay, saw patient 03/08 and rec: minimum 21 day antibiotic therapy and to have patient make appointment with [facility] urology prior to discharge for f/u on TURP. - Continue to follow CBC, LA, and procal 2. Acute renal failure 2/2 obstructive uropathy - Significantly enlarged prostate - creatinine 8.81>6.19>3.65>2.36 - Fluid resuscitation - No electrolyte derangements at this point in time - Continue to monitor electrolytes and kidney function - Urology consulted; see recs above - Given complicated UTI 2/2 obstructive uropathy, started on broad spectrum antibiotics with meropenem and vancomycin - flomax started - finasteride started - Patient with CKD at baseline, but not certain what stage 3. Anemia -H/H: 9.6/29.3 > 10.1/31.3 -iron 13, TIBC 90, transferrin 72, ferritin 798.92, B12 352 -likely anemia of chronic disease, but possible mixed picture with iron of 13 ( low) -ferrous sulfate 325mg started today, continue to monitor -Will check MMA 4. CKD - Uncertain of baseline, patient has unclear history 5. HTN: - BPs 110s-140s/60s-70s, continue to hold home meds at this time 6. CAD - Continue home medications 7. GERD - Continue home medications DVT PPX: SCD's Code Status: Full Diet: Regular Dispo: Medical floor. Nephrology consulted, following recs. Transitioning to PO Abx, due to UCx growing out 5 gram - rods.
[2019-03-10 06:58] LABS: #Eosinphils 0.2 thou/uL (0.0-0.7); #Lymphocytes 0.6 thou/uL (1.20-3.40); #Monocytes 1.1 thou/uL (0.11-0.59); #Neutrophils 18.8 thou/uL (1.40-6.50); %Monocytes 5.1 % (0.0-10.0); %Neutrophils 90.9 % (42.0-75.0); Hemoglobin 10.1 g/dL (14.0-18.0); Mean Corpuscular HGB CONC 32.3 g/dL (32.0-36.0); Mean Corpuscular Hemoglobin 29.2 pg (27.0-31.0); Mean Corpuscular Volume 90.5 fL (78.0-98.0); Mean Platelet Volume 7.8 fL (7.4-10.4); Platelet Count 381 thou/uL (130-400); RBC Distribution Width 13.2 % (11.5-14.5); Red Blood Cell (RBC) Count 3.46 mill/uL (4.70-6.10); White Blood Cell (WBC) Count 20.6 thou/uL (4.8-10.8)
[2019-03-10] MEDS: Ferrous Sulfate 325 MG TAB PO SCH ×2 (07:53→16:50)
[2019-03-10] MEDS: Finasteride 5 MG TAB PO SCH (07:53)
[2019-03-10] MEDS: Phenazopyridine HCl 97.5 MG TABLET PO PRN ×2 (09:32→20:02)
--- NOTE | 2019-03-10 13:13 | PRG ---
DATE OF SERVICE: 03/10/2019 Michael remains afebrile with normal vital signs. He did; however, complain of some nausea and vomiting beginning late yesterday and has had poor p.o. intake since. We called the [place] [facility] about his urine culture and it grew what appeared to be multiple contaminants. Given his clinical improvement and drop in white count and fever, we will switch him to a p.o. medication and I would suggest Levaquin 750 mg daily. We will continue to give him medications for his nausea and vomiting and monitor him closely. Job ID: [id number]
[2019-03-10] MEDS ORDERED: Vancomycin HCl 1.25 GM in Sodium Chloride 0.9% 250 ML 250 ML IVPB SCH (20:00)
[2019-03-10] MEDS: Simvastatin 5 MG TAB PO SCH (20:02)
[2019-03-10] MEDS: Tamsulosin HCl 0.4 MG CAP PO SCH (20:02)
[2019-03-10] MEDS: Pantoprazole 40 MG VIAL IVP SCH (20:03)
[2019-03-10] MEDS: Betamethasone Val 0.1% Lotion 60 ML BOT TOP SCH (20:04)
[2019-03-10] MEDS: hydrALAZINE 20 MG/ML VIAL SLOW IVP PRN (23:56)
[2019-03-11] MEDS: Ondansetron ODT 4 MG TAB PO PRN (01:27)
[2019-03-11] MEDS: Lactated Ringer's 1,000 ML IV SCH ×3 (01:28→19:56)
--- NOTE | 2019-03-11 06:25 | PDOC.FM ---
- Subjective Subjective: He had an episode of vomiting overnight of 150 cc. Not eating well. - Objective MAR Reviewed: Yes Vital Signs & Weight: Vital Signs (12 hours) Temp Pulse Resp BP BP Pulse Ox 03/11/19 04:00 97.7 F 94 20 139/87 93 L 03/11/19 00:00 98.2 F 86 18 190/82 H 95 03/10/19 23:56 92 190/82 H 03/10/19 22:23 92 178/93 H 03/10/19 20:00 98.7 F 84 18 190/75 H 95 Weight Weight 81.448 kg I&O: 03/09/19 03/10/19 03/11/19 06:59 06:59 06:59 Intake Total 4700 1933 3686 Output Total 4000 1000 2950 Balance 700 933 736 Result Diagrams: 03/11/19 08:05 03/10/19 05:38 Phys Exam - Physical Examination In position, less alert today. HEENT: PERRLA Neck: full ROM Respiratory: clear to auscultation bilateral Cardiovascular: RRR, no significant murmur Gastrointestinal: positive bowel sounds tender to palpation in upper abdomen Musculoskeletal: no edema, pulses present Neurological: moves all 4 limbs Psychiatric: A&O x 3 Skin: no rash Dx/Plan (1) Obstructive uropathy Code(s): N13.9 - OBSTRUCTIVE AND REFLUX UROPATHY, UNSPECIFIED Status: Acute (2) Acute on chronic kidney failure Code(s): N17.9 - ACUTE KIDNEY FAILURE, UNSPECIFIED; N18.9 - CHRONIC KIDNEY DISEASE, UNSPECIFIED Status: Acute (3) Sepsis due to urinary tract infection Code(s): A41.9 - SEPSIS, UNSPECIFIED ORGANISM; N39.0 - URINARY TRACT INFECTION, SITE NOT SPECIFIED Status: Acute (4) Anemia Code(s): D64.9 - ANEMIA, UNSPECIFIED Status: Acute (5) CAD (coronary artery disease) Code(s): I25.10 - ATHSCL HEART DISEASE OF [place] CORONARY ARTERY W/O ANG PCTRS Status: Acute (6) GERD (gastroesophageal reflux disease) Code(s): K21.9 - GASTRO-ESOPHAGEAL REFLUX DISEASE WITHOUT ESOPHAGITIS Status: Acute (7) HTN (hypertension) Code(s): I10 - ESSENTIAL (PRIMARY) HYPERTENSION Status: Acute - Plan Plan: 68M with PMHx of BPH, CKD (unknown stage), HTN, CAD, [place] (2006) admitted with sepsis 2/2 UTI 2/2 obstructive uropathy 2/2 BPH and acute on chronic renal failure 1. Sepsis 2/2 UTI from obstructive uropathy (BPH) - WBC 17>18.4>24.5>10.6, though patient continues to look better clinically - LA 4.1>1.2 with fluids - Fluid resuscitation in outside ED - Patient started on Zosyn in ED, switched to meropenem and vancomycin given complicated UTI in setting of obstructive uropathy with resulting renal failure. Stopped and started on Levaquin -pharmacy to dose, vanc troughs ordered - urine culture was a contaminate. Will transition to PO Abx today. - Procalcitonin significantly elevated at 22 then 27>28.36>14.25>6.53>2.45, will continue to monitor - Continue IVF - flomax started - finasteride started to help to decrease size of prostate over time -baseline PSA 8.97 - Continue to monitor kidney function -creatinine 8.81>6.19>3.65>2.36, will recheck this afternoon - Cronin catheter in place and draining effectively at this time; urine orange/ yellow in color but patient is on phenazopyridine - Urology, Dr. Mackay, saw patient 03/08 and rec: minimum 21 day antibiotic therapy and to have patient make appointment with [facility] urology prior to discharge for f/u on TURP. - Continue to follow CBC, LA, and procal 2. Acute renal failure 2/2 obstructive uropathy - Significantly enlarged prostate - creatinine 8.81>6.19>3.65>2.36, will recheck this afternoon. - Fluid resuscitation - No electrolyte derangements at this point in time - Continue to monitor electrolytes and kidney function - Urology consulted; see recs above - Given complicated UTI 2/2 obstructive uropathy, started on broad spectrum antibiotics with meropenem and vancomycin - flomax started - finasteride started - Patient with CKD at baseline, but not certain what stage 3. Anemia -H/H: 9.6/29.3 > 10.1/31.3 > 10.6/32.3 -iron 13, TIBC 90, transferrin 72, ferritin 798.92, B12 352 -likely anemia of chronic disease, but possible mixed picture with iron of 13 ( low) -ferrous sulfate 325mg started today, continue to monitor -Awaiting MMA, Folate, peripheral smear 4. CKD - Uncertain of baseline, patient has unclear history 5. HTN: - BPs 139/87-190/82 - Amlo 5 started - Hydralazine PRN 6. CAD - Continue home medications 7. GERD - Continue home medications as IV due to nausea and vomiting DVT PPX: SCD's Code Status: Full Diet: Regular Dispo: Medical floor. Urology consulted, following recs. Transitioning to PO Abx , due to UCx growing out 5 gram - rods. Added on Reglan for nausea and IV Protonix to settle his stomach down. C. diff was negative.
[2019-03-11] MEDS ORDERED: Sodium Chloride 0.9% (PF) 10 ML VIAL FS PRN (08:29)
[2019-03-11 08:51] LABS: Band 14 % (5-11); Eosinophils 2 % (0-10); Hemoglobin 10.6 g/dL (14.0-18.0); Lymphocytes 2 % (21-51); MDiff Complete? YES; Mean Corpuscular HGB CONC 32.7 g/dL (32.0-36.0); Mean Corpuscular Hemoglobin 29.9 pg (27.0-31.0); Mean Corpuscular Volume 91.4 fL (78.0-98.0); Mean Platelet Volume 7.1 fL (7.4-10.4); Monocytes 6 % (0-10); Neutrophil 76 % (42-75); Platelet Count 419 thou/uL (130-400); RBC Distribution Width 13.3 % (11.5-14.5); Red Blood Cell (RBC) Count 3.54 mill/uL (4.70-6.10); White Blood Cell (WBC) Count 19.1 thou/uL (4.8-10.8)
[2019-03-11] MEDS ORDERED: Amlodipine 5 MG TAB PO SCH (09:00)
[2019-03-11] MEDS ORDERED: Pantoprazole 40 MG VIAL IVP SCH (09:00)
[2019-03-11] MEDS: Pantoprazole 40 MG VIAL IVP SCH ×2 (10:16→19:55)
[2019-03-11] MEDS: Finasteride 5 MG TAB PO SCH (10:21)
[2019-03-11] MEDS: Aspirin 81 mg Enteric Coated Tablet PO SCH (10:21)
[2019-03-11] MEDS: Ferrous Sulfate 325 MG TAB PO SCH ×2 (10:22→18:26)
[2019-03-11] MEDS: Amlodipine 5 MG TAB PO SCH (10:22)
[2019-03-11] MEDS: Betamethasone Val 0.1% Lotion 60 ML BOT TOP SCH ×2 (10:24→19:55)
[2019-03-11 11:13] LABS: Anion Gap 13 mmol/L (10-20); BUN (Urea Nitrogen) 31 mg/dL (8.4-25.7); Calc. Creatinine Clearance 51 mL/min (70-130); Calcium 8.4 mg/dL (7.8-10.44); Carbon Dioxide 25 mmol/L (23-31); Chloride 107 mmol/L (98-107); Estimated GFR-MDRD 43; Glucose 107 mg/dL (80-115); Potassium 3.4 mmol/L (3.5-5.1); Sodium 142 mmol/L (136-145)
--- NOTE | 2019-03-11 11:16 | PRG ---
DATE OF SERVICE: 03/11/2019 Mr. Mckenzie is still not feeling well. He is still having some vomiting mild, but nondescript abdominal pain. His white count is still elevated at 19,000, although he is afebrile. Giving all these issues and the fact that on admission, he was found to have on abdominal CT to have cholelithiasis with mild distention of the gallbladder. I feel we should go ahead and proceed with HIDA scan and repeat our liver function studies. We should obtain a chest x-ray. If no source is found, I would consider a prostate ultrasound to make certain that in the interim he has not developed a prostatic abscess. Job ID: [id number]
--- NOTE | 2019-03-11 12:49 | RAD ---
FRONTAL RADIOGRAPH CHEST: Date: 03/11/19 COMPARISON: 03/07/19. HISTORY: Leukocytosis. FINDINGS: There is nonspecific hazy density in both lung bases with obscuration of the right heart border and b lunting of the right costophrenic angle. IMPRESSION: Hazy bibasilar density which may signify edema, volume loss, or infectious pneumonitis. Recommend fol low-up PA and lateral imaging following treatment. POS: OFF
[2019-03-11] MEDS: Metoclopramide HCl 10 MG/2 ML VIAL IVP SCH ×2 (13:38→21:16)
[2019-03-11] MEDS ORDERED: Clopidogrel Bisulfate 75 MG TAB ONE (18:06)
[2019-03-11] MEDS: Phenazopyridine HCl 97.5 MG TABLET PO PRN (19:55)
[2019-03-11] MEDS: Tamsulosin HCl 0.4 MG CAP PO SCH (19:55)
[2019-03-11] MEDS: Simvastatin 5 MG TAB PO SCH (19:55)
--- NOTE | 2019-03-11 20:12 | NM ---
HIDA SCAN: History: Cholelithiasis. Radiopharmaceutical: 4.5 mCi Technetium 99M Mebrofenin administered intravenously. CCK: 1.69 micrograms given 30 minutes prior to the radiopharmaceutical and after filling of the gallb ladder to calculate gallbladder ejection fraction. FINDINGS: There is good tracer opacification with prompt excretion into the biliary tract and small bowel loops and normal appearing gallbladder. The calculated gallbladder ejection fraction following CCK adminis tration measures 88%. IMPRESSION: Normal exam. POS: ROBERT
[2019-03-12] MEDS: Lactated Ringer's 1,000 ML IV SCH ×3 (05:17→21:32)
[2019-03-12] MEDS: Metoclopramide HCl 10 MG/2 ML VIAL IVP SCH ×3 (05:17→21:33)
--- NOTE | 2019-03-12 05:51 | PDOC.FM ---
- Subjective Subjective: Patient doing well this morning. Would like to sit up more, as he reports laying down makes him feel slightly short of breath. Denies cp, abdominal pain. - Objective Vital Signs & Weight: Vital Signs (12 hours) Temp Pulse Resp BP BP Pulse Ox 03/12/19 04:00 97.9 F 95 18 188/73 H 95 03/12/19 00:00 98.2 F 102 H 20 151/80 H 95 03/11/19 20:00 97.4 F L 96 18 160/86 H 95 03/11/19 19:52 95 03/11/19 18:30 98.2 F 111 H 18 144/93 H 96 Weight Weight 81.448 kg I&O: 03/10/19 03/11/19 03/12/19 06:59 06:59 06:59 Intake Total 1933 3686 3443 Output Total 1100 3100 2800 Balance 833 586 643 Result Diagrams: 03/12/19 06:00 03/12/19 06:00 Radiology Reviewed by me: Yes Radiology: CXR: hazy bibasilar density which may signify edema, volume loss, or infectious penumonitis HIDA scan: normal Phys Exam - Physical Examination Constitutional: NAD HEENT: moist MMs, sclera anicteric Neck: supple, full ROM Respiratory: no wheezing decreased breath sounds lower lobes bilaterally Cardiovascular: RRR, no significant murmur Gastrointestinal: soft, non-tender kaur draining yellow urine, though urine in container orange Musculoskeletal: no edema, pulses present Neurological: normal sensation, moves all 4 limbs Lymphatic: no nodes Psychiatric: normal affect, A&O x 3 Skin: normal turgor, cap refill <2 seconds Dx/Plan (1) Obstructive uropathy Code(s): N13.9 - OBSTRUCTIVE AND REFLUX UROPATHY, UNSPECIFIED Status: Acute (2) BPH (benign prostatic hyperplasia) Code(s): N40.0 - BENIGN PROSTATIC HYPERPLASIA WITHOUT LOWER URINRY TRACT SYMP Status: Acute (3) Sepsis due to urinary tract infection Code(s): A41.9 - SEPSIS, UNSPECIFIED ORGANISM; N39.0 - URINARY TRACT INFECTION, SITE NOT SPECIFIED Status: Acute (4) GERD (gastroesophageal reflux disease) Code(s): K21.9 - GASTRO-ESOPHAGEAL REFLUX DISEASE WITHOUT ESOPHAGITIS Status: Acute (5) Acute on chronic kidney failure Code(s): N17.9 - ACUTE KIDNEY FAILURE, UNSPECIFIED; N18.9 - CHRONIC KIDNEY DISEASE, UNSPECIFIED Status: Acute (6) CAD (coronary artery disease) Code(s): I25.10 - ATHSCL HEART DISEASE OF [place] CORONARY ARTERY W/O ANG PCTRS Status: Acute (7) HTN (hypertension) Code(s): I10 - ESSENTIAL (PRIMARY) HYPERTENSION Status: Acute - Plan Plan: 68M with PMHx of BPH, CKD (unknown stage), HTN, CAD, [place] (2006) admitted with sepsis 2/2 UTI 2/2 obstructive uropathy 2/2 BPH and acute on chronic renal failure #Sepsis 2/2 UTI from obstructive uropathy (BPH) - WBC 17>18.4>24.5>16.2, patient continues to look better clinically - LA 4.1>1.2 with fluids - Fluid resuscitation in outside ED - Patient started on Zosyn in ED, switched to meropenem and vancomycin given complicated UTI in setting of obstructive uropathy with resulting renal failure. Stopped and started on 750mg Levaquin PO QD - urine culture was a contaminate. Transitioned to PO Abx today. - Procalcitonin significantly elevated at 22 then 27>28.36>14.25>6.53>2.45>1.22 , will continue to monitor - Continue IVF - flomax started - finasteride started to help to decrease size of prostate over time -baseline PSA 8.97 - Continue to monitor kidney function -creatinine 8.81>6.19>3.65>2.36>1.40 - Kaur catheter in place and draining effectively at this time; urine orange/ yellow in color but patient is on phenazopyridine - Urology, Dr. Mackay, saw patient 03/08 and rec: minimum 21 day antibiotic therapy and to have patient make appointment with [facility] urology prior to discharge for f/u on TURP. - Continue to follow CBC and procal #Acute renal failure 2/2 obstructive uropathy - Significantly enlarged prostate - creatinine 8.81>6.19>3.65>2.36>1.40, will recheck this afternoon. - Fluid resuscitation - No electrolyte derangements at this point in time - Continue to monitor electrolytes and kidney function - Urology consulted; see recs above - Given complicated UTI 2/2 obstructive uropathy, started on broad spectrum antibiotics with meropenem and vancomycin - flomax started - finasteride started - Patient with CKD at baseline, but not certain what stage #Anemia -H/H: 9.6/29.3 > 10.1/31.3 > 10.6/32.3> 9.2/28.8 -iron 13, TIBC 90, transferrin 72, ferritin 798.92, B12 352 -likely anemia of chronic disease, but possible mixed picture with iron of 13 ( low) -ferrous sulfate 325mg started today, continue to monitor -Awaiting MMA, Folate, peripheral smear #CKD - Uncertain of baseline, patient has unclear history #HTN: - BPs 150s-180s/70s-80s - Amlo 5 started 03/11, increased to 10 on 03/12 - Hydralazine PRN #CAD - Continue home medications #GERD - Continue home medications as IV due to nausea and vomiting DVT PPX: SCD's Code Status: Full Diet: Regular Dispo: Medical floor. Urology consulted, following recs. Transitioned to PO Abx , due to UCx growing out 5 gram - rods. Amlodipine 10 for BP. CXR bibasilar density possibly edema, Lasix 20. C. diff was negative. Addendum - Attending - Attending Attestation Date/Time: 03/12/19 0586 I personally evaluated the patient and discussed the management with Dr. Stearns. I agree with the History, Examination, Assessment and Plan documented above with any addition or exceptions noted below. Pt will get a dose of iv lasix today for basilar crackles. Continue po antibiotics. Anemia labs pending. Likely d/c tomorrow.
[2019-03-12 06:35] LABS: Hemoglobin 9.2 g/dL (14.0-18.0); Mean Corpuscular HGB CONC 32.1 g/dL (32.0-36.0); Mean Corpuscular Hemoglobin 29.3 pg (27.0-31.0); Mean Corpuscular Volume 91.5 fL (78.0-98.0); Mean Platelet Volume 7.1 fL (7.4-10.4); Platelet Count 401 thou/uL (130-400); RBC Distribution Width 13.3 % (11.5-14.5); Red Blood Cell (RBC) Count 3.15 mill/uL (4.70-6.10); White Blood Cell (WBC) Count 16.2 thou/uL (4.8-10.8)
[2019-03-12 06:41] LABS: Anion Gap 10 mmol/L (10-20); BUN (Urea Nitrogen) 26 mg/dL (8.4-25.7); Calc. Creatinine Clearance 60 mL/min (70-130); Calcium 7.9 mg/dL (7.8-10.44); Carbon Dioxide 28 mmol/L (23-31); Chloride 107 mmol/L (98-107); Estimated GFR-MDRD 51; Glucose 96 mg/dL (80-115); Potassium 3.3 mmol/L (3.5-5.1); Sodium 142 mmol/L (136-145)
[2019-03-12 06:57] LABS: Band 5 % (5-11); Lymphocytes 2 % (21-51); MDiff Complete? YES; Monocytes 6 % (0-10); Myelocyte 1 % (0-0); Neutrophil 86 % (42-75)
[2019-03-12] MEDS: Amlodipine 5 MG TAB PO SCH (08:44)
[2019-03-12] MEDS: Pantoprazole 40 MG VIAL IVP SCH ×2 (08:44→20:23)
[2019-03-12] MEDS: Aspirin 81 mg Enteric Coated Tablet PO SCH (08:45)
[2019-03-12] MEDS: Ferrous Sulfate 325 MG TAB PO SCH ×2 (08:45→16:48)
[2019-03-12] MEDS: Betamethasone Val 0.1% Lotion 60 ML BOT TOP SCH ×2 (08:46→20:21)
[2019-03-12] MEDS: Potassium Chloride 20 MEQ TAB PO SCH (08:46)
[2019-03-12] MEDS: Finasteride 5 MG TAB PO SCH (08:46)
[2019-03-12] MEDS ORDERED: Furosemide 20 MG TAB PO SCH (09:00)
[2019-03-12] MEDS ORDERED: Amlodipine 10 MG TAB PO SCH (09:00)
[2019-03-12] MEDS ORDERED: Amlodipine 5 MG TAB PO SCH (10:30)
[2019-03-12 12:08] LABS: Folate,Hemolysate 271.1 ng/mL (Not Estab.); Hematocrit 32.4 % (37.5-51.0); RBC Folate Test Component 837 ng/mL (>498)
[2019-03-12] MEDS: Tamsulosin HCl 0.4 MG CAP PO SCH (20:23)
[2019-03-12] MEDS: Simvastatin 5 MG TAB PO SCH (20:23)
--- NOTE | 2019-03-13 05:22 | PDOC.FM ---
- Subjective Subjective: Patient reports he had a rough night. States he felt feverish, though no fever documented. Also got report from nursing that he rejected his PO levaquin this morning as he said he couldn't swallow the pill. He has been taking it compliantly throughout the last several days. Dr. Mackay saw patient today and rec repeat kaur urine culture and then switching patient to vanc and meropenem. Will continue to follow. - Objective Vital Signs & Weight: Vital Signs (12 hours) Temp Pulse Resp BP Pulse Ox 03/13/19 05:12 98.7 F 99 20 179/71 H 94 L 03/13/19 04:00 97.9 F 96 20 195/82 H 95 03/13/19 00:00 98.0 F 96 20 154/58 H 94 L 03/12/19 20:00 92 L 03/12/19 19:01 98.0 F 93 20 169/74 H 92 L Weight Weight 81.448 kg I&O: 03/11/19 03/12/19 03/13/19 06:59 06:59 06:59 Intake Total 3686 3443 2510 Output Total 3100 2800 2200 Balance 586 643 310 Result Diagrams: 03/13/19 05:28 03/13/19 05:28 Phys Exam - Physical Examination Constitutional: NAD HEENT: moist MMs, sclera anicteric Neck: supple, full ROM Decreased breath sounds lower lung bases Cardiovascular: RRR, no significant murmur Gastrointestinal: soft, non-tender Musculoskeletal: no edema, pulses present Neurological: normal sensation, moves all 4 limbs Lymphatic: no nodes Psychiatric: normal affect, A&O x 3 Skin: normal turgor, cap refill <2 seconds Dx/Plan (1) Obstructive uropathy Code(s): N13.9 - OBSTRUCTIVE AND REFLUX UROPATHY, UNSPECIFIED Status: Acute (2) BPH (benign prostatic hyperplasia) Code(s): N40.0 - BENIGN PROSTATIC HYPERPLASIA WITHOUT LOWER URINRY TRACT SYMP Status: Acute (3) Sepsis due to urinary tract infection Code(s): A41.9 - SEPSIS, UNSPECIFIED ORGANISM; N39.0 - URINARY TRACT INFECTION, SITE NOT SPECIFIED Status: Acute (4) GERD (gastroesophageal reflux disease) Code(s): K21.9 - GASTRO-ESOPHAGEAL REFLUX DISEASE WITHOUT ESOPHAGITIS Status: Acute (5) Acute on chronic kidney failure Code(s): N17.9 - ACUTE KIDNEY FAILURE, UNSPECIFIED; N18.9 - CHRONIC KIDNEY DISEASE, UNSPECIFIED Status: Acute (6) CAD (coronary artery disease) Code(s): I25.10 - ATHSCL HEART DISEASE OF [place] CORONARY ARTERY W/O ANG PCTRS Status: Acute (7) HTN (hypertension) Code(s): I10 - ESSENTIAL (PRIMARY) HYPERTENSION Status: Acute - Plan Plan: 68M with PMHx of BPH, CKD (unknown stage), HTN, CAD, [place] (2006) admitted with sepsis 2/2 UTI 2/2 obstructive uropathy 2/2 BPH and acute on chronic renal failure #Sepsis 2/2 UTI from obstructive uropathy (BPH) - WBC 17>18.4>24.5>16.2>19.7, patient continues to look better clinically - LA 4.1>1.2 with fluids - Fluid resuscitation in outside ED - Patient started on Zosyn in ED, switched to meropenem and vancomycin given complicated UTI in setting of obstructive uropathy with resulting renal failure. Stopped and started on 750mg Levaquin PO QD - urine culture was a contaminate. Transitioned to PO Abx today. - Procalcitonin significantly elevated at 22 then 27>28.36>14.25>6.53>2.45>1.22> 0.64, will continue to monitor - Continue IVF - flomax started - finasteride started to help to decrease size of prostate over time -baseline PSA 8.97 - Continue to monitor kidney function -creatinine 8.81>6.19>3.65>2.36>1.40>1.25 - Kaur catheter in place and draining effectively at this time; urine orange/ yellow in color but patient is on phenazopyridine - Urology, Dr. Mackay, saw patient 03/08 and rec: minimum 21 day antibiotic therapy and to have patient make appointment with [facility] urology prior to discharge for f/u on TURP. -saw patient 03/13 and rec repeat kaur urine culture today before switching from levoquin to vanc and meropenem - Continue to follow CBC and procal -will f/u urine culture, though possibility it will be negative as patient has been on antibiotics (vanc and meropenem 03/07-03/10) and levoquin (03/11-03/13) #Acute renal failure 2/2 obstructive uropathy - Significantly enlarged prostate - creatinine 8.81>6.19>3.65>2.36>1.40>1.25, will recheck this afternoon. - Fluid resuscitation - No electrolyte derangements at this point in time - Continue to monitor electrolytes and kidney function - Urology consulted; see recs above - Given complicated UTI 2/2 obstructive uropathy, started on broad spectrum antibiotics with meropenem and vancomycin - flomax started - finasteride started - Patient with CKD at baseline, but not certain what stage #Anemia -H/H: 9.6/29.3 > 10.1/31.3 > 10.6/32.3> 9.2/28.8 > 9.7/30.4 -iron 13, TIBC 90, transferrin 72, ferritin 798.92, B12 352 -likely anemia of chronic disease, but possible mixed picture with iron of 13 ( low) -ferrous sulfate 325mg started today, continue to monitor -Folate wnl -Awaiting MMA, peripheral smear #CKD - Uncertain of baseline, patient has unclear history #HTN: - BPs 110s-190s/50s-80s - Amlo 5 started 03/11, increased to 10 on 03/12 - Hydralazine PRN #CAD - Continue home medications #GERD - Continue home medications as IV due to nausea and vomiting DVT PPX: SCD's Code Status: Full Diet: Regular Dispo: Medical floor. Urology consulted, following recs. Transitioned back to vanc and meropenem, after repeat kaur urine culture. Amlodipine 10 for BP. CXR bibasilar density possibly edema, Lasix 20. C. diff was negative. Addendum - Attending - Attending Attestation Date/Time: 03/13/19 8684 I personally evaluated the patient and discussed the management with Dr. Stearns. I agree with the History, Examination, Assessment and Plan documented above with any addition or exceptions noted below. The patient is back on IV vanc and meropenem. Urine culture is pending.
[2019-03-13] MEDS: Lactated Ringer's 1,000 ML IV SCH ×3 (05:32→20:45)
[2019-03-13] MEDS: Metoclopramide HCl 10 MG/2 ML VIAL IVP SCH ×3 (05:33→21:57)
[2019-03-13] MEDS: hydrALAZINE 20 MG/ML VIAL SLOW IVP PRN (06:13)
[2019-03-13 06:45] LABS: Hemoglobin 9.7 g/dL (14.0-18.0); Mean Corpuscular HGB CONC 31.9 g/dL (32.0-36.0); Mean Corpuscular Hemoglobin 28.7 pg (27.0-31.0); Mean Platelet Volume 7.6 fL (7.4-10.4); Platelet Count 367 thou/uL (130-400); RBC Distribution Width 13.2 % (11.5-14.5); Red Blood Cell (RBC) Count 3.38 mill/uL (4.70-6.10); White Blood Cell (WBC) Count 19.7 thou/uL (4.8-10.8)
[2019-03-13 07:01] LABS: Anion Gap 13 mmol/L (10-20); BUN (Urea Nitrogen) 21 mg/dL (8.4-25.7); Calc. Creatinine Clearance 67 mL/min (70-130); Calcium 7.8 mg/dL (7.8-10.44); Carbon Dioxide 26 mmol/L (23-31); Chloride 102 mmol/L (98-107); Estimated GFR-MDRD 58; Glucose 102 mg/dL (80-115); Potassium 3.3 mmol/L (3.5-5.1); Sodium 138 mmol/L (136-145)
[2019-03-13] MEDS: Finasteride 5 MG TAB PO SCH (08:15)
[2019-03-13] MEDS: Potassium Chloride 20 MEQ TAB PO SCH (08:16)
[2019-03-13] MEDS: Pantoprazole 40 MG VIAL IVP SCH ×2 (08:16→20:46)
[2019-03-13] MEDS: Aspirin 81 mg Enteric Coated Tablet PO SCH (08:16)
[2019-03-13] MEDS: Ferrous Sulfate 325 MG TAB PO SCH ×2 (08:16→16:58)
[2019-03-13] MEDS: Amlodipine 10 MG TAB PO SCH (08:16)
[2019-03-13] MEDS: Betamethasone Val 0.1% Lotion 60 ML BOT TOP SCH ×2 (08:17→20:45)
[2019-03-13] MEDS: Vancomycin HCl 1 GM in Premix Bag 1 BAG IVPB SCH ×2 (08:17→20:43)
--- NOTE | 2019-03-13 08:21 | PRG ---
DATE OF SERVICE: 03/13/2019 SUBJECTIVE: The patient is alert and awake, cooperative to physical exam. Denies chills. OBJECTIVE: VITAL SIGNS: Stable. He is afebrile, 98, 99, 20, 94, 171/79. I's and O's of 4060 in, 5150 out. Urine output is yellow with some sediment. ABDOMEN: Soft. No rigidity. No rebound. PERTINENT LABORATORY DATA: White count 19, hemoglobin 9.7, and platelet 336. Creatinine 1.25. Admitting creatinine 8.8. IMPRESSION AND PLAN: 1. Mr. Mckenzie now is a 68-year-old prisoner, who was followed by [facility] with history of benign prostatic hyperplasia, urinary retention. 2. Transurethral resection of the prostate, planned at [facility], Cardiology clearance pending per patient, however, this was canceled as he presented with urinary tract infection. 3. The patient presented last week with catheter placed suboptimally in the penile bulbar urethra, likely he had a pre-existing Cronin catheter that was inflated in the penile urethra, chronicity unknown. He presented with significant bladder distention, bilateral hydronephrosis, renal failure. Cronin catheter was placed at bedside, with cystoscope persist. His renal insufficiency and renal failure have resolved, continues to have leukocytosis. I do not believe Levaquin is appropriate antibiotic for this patient as he has had multiple urinary tract infections, likely and pre-existing indwelling Cronin catheter with polymicrobial microorganism on previous urine culture. Recommend transitioning the patient to meropenem, vancomycin. Spoke with nurse, recheck urine culture from Cronin catheter will be obtained prior to initiating meropenem and vancomycin. patient not stable for discharge yet. At minimum, recheck urine culture needs to be finalized prior to disposition. Close followup with [facility] for transurethral resection of the prostate, as patient has had indwelling Cronin catheter for quite some time, with traumatic Cronin catheter placement, chronicity unknown. Job ID: [id number] [facility]
[2019-03-13 09:30] LABS: Band 8 % (5-11); Eosinophils 1 % (0-10); Lymphocytes 5 % (21-51); MDiff Complete? YES; Monocytes 4 % (0-10); Neutrophil 82 % (42-75); Platelet Morphology Comment Appears Adequate; Polychromasia SLIGHT = 2-3 cells (100X) (0-2/hpf)
[2019-03-13] MEDS: Meropenem 2 GM in Sodium Chloride 0.9% 100 ML IVPB SCH ×2 (10:23→16:58)
[2019-03-13] MEDS ORDERED: Meropenem 2 GM in Sodium Chloride 0.9% 100 ML IVPB SCH (14:00)
[2019-03-13] MEDS ORDERED: Meropenem 2 GM in Admixture Fee 1 EACH IVPB SCH (14:00)
[2019-03-13] MEDS: Tamsulosin HCl 0.4 MG CAP PO SCH (20:46)
[2019-03-13] MEDS: Simvastatin 5 MG TAB PO SCH (20:46)
[2019-03-14] MEDS: Meropenem 2 GM in Sodium Chloride 0.9% 100 ML IVPB SCH ×3 (01:33→16:58)
--- NOTE | 2019-03-14 05:11 | PDOC.FM ---
- Subjective Subjective: Patient doing well this morning. Denies abdominal pain, cp, sob. Agreeable to current plan. - Objective Vital Signs & Weight: Vital Signs (12 hours) Temp Pulse Resp BP Pulse Ox 03/13/19 20:00 94 L 03/13/19 19:16 97.8 F 93 18 157/67 H 91 L Weight Weight 81.448 kg I&O: 03/12/19 03/13/19 03/14/19 06:59 06:59 06:59 Intake Total 3443 4060 1550 Output Total 2800 5150 2200 Balance 643 -7221 -545 Result Diagrams: 03/14/19 05:37 03/14/19 05:37 Phys Exam - Physical Examination Constitutional: NAD HEENT: moist MMs, sclera anicteric glass eye-left Neck: supple, full ROM Respiratory: no wheezing, clear to auscultation bilateral Cardiovascular: RRR, no significant murmur Gastrointestinal: soft, non-tender Musculoskeletal: no edema, pulses present Neurological: normal sensation, moves all 4 limbs Lymphatic: no nodes Psychiatric: normal affect, A&O x 3 Skin: normal turgor, cap refill <2 seconds Dx/Plan (1) Obstructive uropathy Code(s): N13.9 - OBSTRUCTIVE AND REFLUX UROPATHY, UNSPECIFIED Status: Acute (2) BPH (benign prostatic hyperplasia) Code(s): N40.0 - BENIGN PROSTATIC HYPERPLASIA WITHOUT LOWER URINRY TRACT SYMP Status: Acute (3) Sepsis due to urinary tract infection Code(s): A41.9 - SEPSIS, UNSPECIFIED ORGANISM; N39.0 - URINARY TRACT INFECTION, SITE NOT SPECIFIED Status: Acute (4) GERD (gastroesophageal reflux disease) Code(s): K21.9 - GASTRO-ESOPHAGEAL REFLUX DISEASE WITHOUT ESOPHAGITIS Status: Acute (5) Acute on chronic kidney failure Code(s): N17.9 - ACUTE KIDNEY FAILURE, UNSPECIFIED; N18.9 - CHRONIC KIDNEY DISEASE, UNSPECIFIED Status: Acute (6) CAD (coronary artery disease) Code(s): I25.10 - ATHSCL HEART DISEASE OF [place] CORONARY ARTERY W/O ANG PCTRS Status: Acute (7) HTN (hypertension) Code(s): I10 - ESSENTIAL (PRIMARY) HYPERTENSION Status: Acute (8) Hypokalemia Code(s): E87.6 - HYPOKALEMIA Status: Acute - Plan Plan: 68M with PMHx of BPH, CKD (unknown stage), HTN, CAD, [place] (2006) admitted with sepsis 2/2 UTI 2/2 obstructive uropathy 2/2 BPH and acute on chronic renal failure #Sepsis 2/2 UTI from obstructive uropathy (BPH) - WBC 17>18.4>24.5>16.2>19.7>14.4, patient continues to look better clinically - LA 4.1>1.2 with fluids - Fluid resuscitation in outside ED - Patient started on Zosyn in ED, switched to meropenem and vancomycin given complicated UTI in setting of obstructive uropathy with resulting renal failure. Stopped and started on 750mg Levaquin PO QD -03/13 levaquin stopped and vancomycin and meropenem started, continue - original urine culture was a contaminate. - Procalcitonin significantly elevated at 22 then 27>28.36>14.25>6.53>2.45>1.22> 0.64, will continue to monitor - Continue IVF - flomax started - finasteride started to help to decrease size of prostate over time -baseline PSA 8.97 - Continue to monitor kidney function -creatinine 8.81>6.19>3.65>2.36>1.40>1.25 - Kaur catheter in place and draining effectively at this time; urine orange/ yellow in color but patient is on phenazopyridine - Urology, Dr. Mackay, saw patient 03/08 and rec: minimum 21 day antibiotic therapy and to have patient make appointment with [facility] urology prior to discharge for f/u on TURP. -saw patient 03/13 and rec repeat kaur urine culture today before switching from levoquin to vanc and meropenem - Continue to follow CBC and procal -will f/u urine culture, though possibility it will be negative as patient has been on antibiotics (vanc and meropenem 03/07-03/10) and levoquin (03/11-03/13) #Acute renal failure 2/2 obstructive uropathy - Significantly enlarged prostate - creatinine 8.81>6.19>3.65>2.36>1.40>1.25, will recheck this afternoon. - Fluid resuscitation - No electrolyte derangements at this point in time - Continue to monitor electrolytes and kidney function - Urology consulted; see recs above - Given complicated UTI 2/2 obstructive uropathy, started on broad spectrum antibiotics with meropenem and vancomycin - flomax started - finasteride started - Patient with CKD at baseline, but not certain what stage #Anemia- likely 2/2 chronic disease -H/H: 9.6/29.3 > 10.1/31.3 > 10.6/32.3> 9.2/28.8 > 9.7/30.4> 9.2/29.4 -iron 13, TIBC 90, transferrin 72, ferritin 798.92, B12 352 -likely anemia of chronic disease, but possible mixed picture with iron of 13 ( low) -ferrous sulfate 325mg started, continue to monitor -Folate wnl -peripheral smear: absolute neurophilia, normocytic normochromic anemia, thrombocytosis -Awaiting MMA #Hypokalemia -Potassium 3.0 03/14, ordered 40meq K-dur -continue to monitor #CKD - Uncertain of baseline, patient has unclear history #HTN: - BPs 150s/60s - Amlo 5 started 03/11, increased to 10 on 03/12 - Hydralazine PRN #CAD - Continue home medications #GERD - Continue home medications as IV due to nausea and vomiting DVT PPX: SCD's Code Status: Full Diet: Regular Dispo: Medical floor. Urology consulted, following recs. Transitioned back to vanc and meropenem, after repeat kaur urine culture. Amlodipine 10 for BP. C. diff was negative. Addendum - Attending - Attending Attestation Date/Time: 03/14/19 1394 I personally evaluated the patient and discussed the management with Dr. Stearns. I agree with the History, Examination, Assessment and Plan documented above with any addition or exceptions noted below. Pt remains on IV antibiotics, culture pending. Replacing potassium. f/u with urology recs.
[2019-03-14] MEDS: Lactated Ringer's 1,000 ML IV SCH ×3 (05:38→20:11)
[2019-03-14] MEDS: Metoclopramide HCl 10 MG/2 ML VIAL IVP SCH ×3 (05:49→22:40)
[2019-03-14 06:11] LABS: #Eosinphils 0.3 thou/uL (0.0-0.7); #Lymphocytes 0.8 thou/uL (1.20-3.40); #Monocytes 0.6 thou/uL (0.11-0.59); #Neutrophils 12.8 thou/uL (1.40-6.50); %Eosinophils 1.8 % (0.0-10.0); %Lymphocytes 5.4 % (21.0-51.0); %Monocytes 3.9 % (0.0-10.0); %Neutrophils 88.8 % (42.0-75.0); Hemoglobin 9.2 g/dL (14.0-18.0); Mean Corpuscular HGB CONC 31.3 g/dL (32.0-36.0); Mean Corpuscular Hemoglobin 28.4 pg (27.0-31.0); Mean Corpuscular Volume 90.9 fL (78.0-98.0); Mean Platelet Volume 7.4 fL (7.4-10.4); Platelet Count 359 thou/uL (130-400); RBC Distribution Width 13.3 % (11.5-14.5); Red Blood Cell (RBC) Count 3.23 mill/uL (4.70-6.10); White Blood Cell (WBC) Count 14.4 thou/uL (4.8-10.8)
[2019-03-14 06:32] LABS: Anion Gap 10 mmol/L (10-20); BUN (Urea Nitrogen) 22 mg/dL (8.4-25.7); Calc. Creatinine Clearance 67 mL/min (70-130); Calcium 7.4 mg/dL (7.8-10.44); Carbon Dioxide 28 mmol/L (23-31); Chloride 102 mmol/L (98-107); Estimated GFR-MDRD 58; Glucose 98 mg/dL (80-115); Sodium 137 mmol/L (136-145)
[2019-03-14] MEDS ORDERED: Potassium Chloride 20 MEQ TAB PO SCH (07:00)
--- NOTE | 2019-03-14 08:01 | PRG ---
DATE OF SERVICE: 03/14/2019 SUBJECTIVE: The patient feeling better. Denies chills. OBJECTIVE: VITAL SIGNS: Stable. I's and O's 3530 in and 4925 out. He is negative 1.3 L. ABDOMEN: Soft, nontender, and nondistended. : Cronin catheter draining ern[place] tinged urine. No pus at the meatus. LABORATORY DATA: White count decreased from 19 to 14, hemoglobin 9.2, and platelet 359. Creatinine 1.2. Repeat urine culture is pending. IMPRESSION AND PLAN: 1. A 68-year-old male with a history of urinary retention, benign prostatic hyperplasia followed by [facility] Urology. 2. Transurethral resection of the prostate, planned at [facility], Cardiology clearance pending per the patient, as it was deferred due to urinary tract infection. 3. The patient presented with catheter misplaced in the penile/bulbar urethra, chronicity of misplaced catheter is unknown as he presents with significant hydronephrosis, bladder distention, and renal failure. He required cystoscopic assist to place the Cronin catheter into the bladder. Subsequent catheter changes have to be performed with cystoscopic assist, given clinical issues. This needs to be conveyed to [facility] Urology. Suboptimal treatment with Levaquin, switch to meropenem and vancomycin. Repeat urine culture pending. When culture finalized , disposition with appropriate antibiotic therapy is advised. Continue present management. Job ID: [id number] [facility]TDD
[2019-03-14] MEDS: Betamethasone Val 0.1% Lotion 60 ML BOT TOP SCH ×2 (08:33→20:13)
[2019-03-14] MEDS: Vancomycin HCl 1 GM in Premix Bag 1 BAG IVPB SCH (08:36)
[2019-03-14] MEDS: Finasteride 5 MG TAB PO SCH (08:37)
[2019-03-14] MEDS: Amlodipine 10 MG TAB PO SCH (08:37)
[2019-03-14] MEDS: Aspirin 81 mg Enteric Coated Tablet PO SCH (08:37)
[2019-03-14] MEDS: Ferrous Sulfate 325 MG TAB PO SCH ×2 (08:37→16:58)
[2019-03-14] MEDS: Pantoprazole 40 MG VIAL IVP SCH ×2 (08:38→20:14)
[2019-03-14] MEDS: Simvastatin 5 MG TAB PO SCH (20:14)
[2019-03-14] MEDS: Tamsulosin HCl 0.4 MG CAP PO SCH (20:15)
[2019-03-14 21:55] LABS: Vancomycin, Trough 22.6 ug/mL
[2019-03-14] MEDS: Vancomycin HCl 750 MG in Sodium Chloride 0.9% 250 ML 250 ML IVPB SCH (22:39)
[2019-03-15] MEDS: Meropenem 2 GM in Sodium Chloride 0.9% 100 ML IVPB SCH ×3 (01:09→17:15)
--- NOTE | 2019-03-15 05:43 | PDOC.FM ---
- Subjective Subjective: Patient doing well this morning. Reports that he slept well last night. Is agreeable to current plan of care. Denies cp, sob, abdominal pain. - Objective Vital Signs & Weight: Vital Signs (12 hours) Temp Pulse Resp BP Pulse Ox 03/14/19 20:00 96 03/14/19 19:13 97.5 F L 111 H 20 126/74 96 Weight Weight 81.448 kg I&O: 03/13/19 03/14/19 03/15/19 06:59 06:59 06:59 Intake Total 4060 3530 1600 Output Total 5150 0505 3800 Balance -5122 -2285 -6305 Result Diagrams: 03/15/19 08:16 03/15/19 08:16 Phys Exam - Physical Examination Constitutional: NAD HEENT: sclera anicteric, TM's clear left eye glass Neck: supple, full ROM Respiratory: no wheezing, clear to auscultation bilateral Cardiovascular: no significant murmur tachycardic Gastrointestinal: soft, non-tender Musculoskeletal: no edema, pulses present Neurological: normal sensation, moves all 4 limbs Lymphatic: no nodes Psychiatric: normal affect, A&O x 3 Skin: normal turgor, cap refill <2 seconds Dx/Plan (1) Obstructive uropathy Code(s): N13.9 - OBSTRUCTIVE AND REFLUX UROPATHY, UNSPECIFIED Status: Acute (2) BPH (benign prostatic hyperplasia) Code(s): N40.0 - BENIGN PROSTATIC HYPERPLASIA WITHOUT LOWER URINRY TRACT SYMP Status: Acute (3) Sepsis due to urinary tract infection Code(s): A41.9 - SEPSIS, UNSPECIFIED ORGANISM; N39.0 - URINARY TRACT INFECTION, SITE NOT SPECIFIED Status: Acute (4) GERD (gastroesophageal reflux disease) Code(s): K21.9 - GASTRO-ESOPHAGEAL REFLUX DISEASE WITHOUT ESOPHAGITIS Status: Acute (5) Acute on chronic kidney failure Code(s): N17.9 - ACUTE KIDNEY FAILURE, UNSPECIFIED; N18.9 - CHRONIC KIDNEY DISEASE, UNSPECIFIED Status: Acute (6) CAD (coronary artery disease) Code(s): I25.10 - ATHSCL HEART DISEASE OF [place] CORONARY ARTERY W/O ANG PCTRS Status: Acute (7) HTN (hypertension) Code(s): I10 - ESSENTIAL (PRIMARY) HYPERTENSION Status: Acute (8) Hypokalemia Code(s): E87.6 - HYPOKALEMIA Status: Acute - Plan Plan: 68M with PMHx of BPH, CKD (unknown stage), HTN, CAD, [place] (2006) admitted with sepsis 2/2 UTI 2/2 obstructive uropathy 2/2 BPH and acute on chronic renal failure #Sepsis 2/2 UTI from obstructive uropathy (BPH) - WBC 17>18.4>24.5>16.2>19.7>14.4>14.9, patient continues to look better clinically - LA 4.1>1.2 with fluids - Fluid resuscitation in outside ED - Patient started on Zosyn in ED, switched to meropenem and vancomycin given complicated UTI in setting of obstructive uropathy with resulting renal failure. Stopped and started on 750mg Levaquin PO QD -03/13 levaquin stopped and vancomycin and meropenem started, continue - original urine culture was a contaminate. - Procalcitonin significantly elevated at 22 then 27>28.36>14.25>6.53>2.45>1.22> 0.64, will continue to monitor - Continue IVF - flomax started - finasteride started to help to decrease size of prostate over time -baseline PSA 8.97 - Continue to monitor kidney function -creatinine 8.81>6.19>3.65>2.36>1.40>1.25 - Kaur catheter in place and draining effectively at this time; urine orange/ yellow in color but patient is on phenazopyridine - Urology, Dr. Mackay, saw patient 03/08 and rec: minimum 21 day antibiotic therapy and to have patient make appointment with [facility] urology prior to discharge for f/u on TURP. -saw patient 03/13 and rec repeat kaur urine culture today before switching from levoquin to vanc and meropenem - Continue to follow CBC -will f/u urine culture, though possibility it will be negative as patient has been on antibiotics (vanc and meropenem 03/07-03/10) and levoquin (03/11-03/13). Possible transition abx when 48hr urine culture neg #Acute renal failure 2/2 obstructive uropathy - Significantly enlarged prostate - creatinine 8.81>6.19>3.65>2.36>1.40>1.25>1.21 - D/C IVF 03/15 - Continue to monitor electrolytes and kidney function - Urology consulted; see recs above - Given complicated UTI 2/2 obstructive uropathy, started on broad spectrum antibiotics with meropenem and vancomycin - flomax started - finasteride started - Patient with CKD at baseline, but not certain what stage #Anemia- likely 2/2 chronic disease -H/H: 9.6/29.3 > 10.1/31.3 > 10.6/32.3> 9.2/28.8 > 9.7/30.4> 9.2/29.4> 10.1/31.8 -iron 13, TIBC 90, transferrin 72, ferritin 798.92, B12 352 -likely anemia of chronic disease, but possible mixed picture with iron of 13 ( low) -ferrous sulfate 325mg started, continue to monitor -Folate wnl -peripheral smear: absolute neurophilia, normocytic normochromic anemia, thrombocytosis -Awaiting MMA #Hypokalemia -Potassium 3.1 03/15, ordered 40meq K-dur -continue to monitor #CKD - Uncertain of baseline, patient has unclear history #HTN: - BPs 120s-140s/70s - Amlo 5 started 03/11, increased to 10 on 03/12 - Hydralazine PRN, did not require any overnight #CAD - Continue home medications #GERD - Continue home medications as IV due to nausea and vomiting DVT PPX: SCD's Code Status: Full Diet: Regular Dispo: Medical floor. Urology consulted, following recs. Transitioned back to vanc and meropenem, awaiting repeat kaur urine culture results. Amlodipine 10 for BP. C. diff was negative. Addendum - Attending - Attending Attestation Date/Time: 03/15/19 [id number] I personally evaluated the patient and discussed the management with Dr. Stearns. I agree with the History, Examination, Assessment and Plan documented above with any addition or exceptions noted below. Pt is feeling better. Urology has consulted Dr. Walker. Will follow-up on recs.
[2019-03-15] MEDS: Metoclopramide HCl 10 MG/2 ML VIAL IVP SCH ×3 (05:56→20:44)
[2019-03-15] MEDS: Lactated Ringer's 1,000 ML IV SCH (05:56)
[2019-03-15] MEDS: Vancomycin HCl 1 GM in Premix Bag 1 BAG IVPB SCH (07:38)
[2019-03-15] MEDS: Ferrous Sulfate 325 MG TAB PO SCH ×2 (08:36→17:15)
[2019-03-15 08:37] LABS: #Eosinphils 0.4 thou/uL (0.0-0.7); #Lymphocytes 1.2 thou/uL (1.20-3.40); #Monocytes 0.6 thou/uL (0.11-0.59); #Neutrophils 12.7 thou/uL (1.40-6.50); %Basophils 0.3 % (0.0-1.0); %Eosinophils 2.5 % (0.0-10.0); %Monocytes 3.8 % (0.0-10.0); %Neutrophils 85.4 % (42.0-75.0); Hemoglobin 10.1 g/dL (14.0-18.0); Mean Corpuscular HGB CONC 31.7 g/dL (32.0-36.0); Mean Corpuscular Hemoglobin 29.2 pg (27.0-31.0); Mean Corpuscular Volume 92.3 fL (78.0-98.0); Mean Platelet Volume 7.4 fL (7.4-10.4); Platelet Count 431 thou/uL (130-400); RBC Distribution Width 13.5 % (11.5-14.5); Red Blood Cell (RBC) Count 3.44 mill/uL (4.70-6.10); White Blood Cell (WBC) Count 14.9 thou/uL (4.8-10.8)
[2019-03-15] MEDS: Aspirin 81 mg Enteric Coated Tablet PO SCH (08:37)
[2019-03-15] MEDS: Amlodipine 10 MG TAB PO SCH (08:37)
[2019-03-15] MEDS: Finasteride 5 MG TAB PO SCH (08:37)
[2019-03-15] MEDS: Betamethasone Val 0.1% Lotion 60 ML BOT TOP SCH ×2 (08:37→20:43)
[2019-03-15] MEDS: Pantoprazole 40 MG VIAL IVP SCH ×2 (08:38→20:44)
[2019-03-15 09:03] LABS: Anion Gap 11 mmol/L (10-20); BUN (Urea Nitrogen) 20 mg/dL (8.4-25.7); Calc. Creatinine Clearance 69 mL/min (70-130); Calcium 7.5 mg/dL (7.8-10.44); Carbon Dioxide 25 mmol/L (23-31); Chloride 106 mmol/L (98-107); Estimated GFR-MDRD 60; Glucose 114 mg/dL (80-115); Potassium 3.1 mmol/L (3.5-5.1); Sodium 139 mmol/L (136-145)
[2019-03-15] MEDS ORDERED: Potassium Chloride 20 MEQ TAB PO SCH (09:15)
--- NOTE | 2019-03-15 09:48 | PRG ---
DATE OF SERVICE: 03/15/2019 SUBJECTIVE: The patient without complaints, feeling better. OBJECTIVE: VITAL SIGNS: Stable. He is afebrile. I's and O's 3100 in and 6 L out. Urine output is clear yellow. LABORATORY DATA: No new labs. Yesterday's white count decreased to 14. Renal function 1.25. Significant improvement of his renal failure. Repeat urine culture is negative. IMPRESSION AND PLAN: 1. Mr. Mckenzie is a 68-year-old male with history of urinary retention, BPH, followed by [facility] Urology. 2. Transurethral resection of prostate planned at [facility]. Cardiac clearance is pending at the facility. The patient had a catheter misplaced in the penile, bulbar urethra, chronicity of misplaced catheter is unknown as he presented with significant hydronephrosis, bladder distention. He required cystoscopic assistance to place Cronin catheter, subsequent catheter change has to be performed by [facility] Urology. Upon disposition, he must have close followup for replacement of Cronin catheter and to proceed with TURP as previous plan. He has improvement of clinical parameters based on change of antibiotics to meropenem and vancomycin. Repeat urine culture thus far is negative. Await input from Dr. Walker to transition to outpatient antibiotic therapy per his recommendation as I do not think Levaquin is optimal as he had persistent leukocytosis. Await Infectious Disease, disposition pending Dr. Walker' evaluation. Job ID: [id number] [facility]
[2019-03-15] MEDS: Vancomycin HCl 750 MG in Sodium Chloride 0.9% 250 ML 250 ML IVPB SCH (11:15)
--- NOTE | 2019-03-15 19:01 | CON ---
DATE OF CONSULTATION: 03/15/2019 REASON FOR CONSULTATION: Urinary obstruction with multiple organisms isolated from urinary tract. HISTORY OF PRESENT ILLNESS: A 68-year-old with history of benign prostatic hypertrophy and coronary artery disease, who was brought in from alf because of sepsis and abdominal pain. His initial BP was 101/42, pulse 85, respirations 16, temperature 97.5, and O2 saturation 100. Pertinent findings in the exam included abdominal tenderness which is diffuse. The patient at that time had a Cronin catheter in place, which had been present since the beginning of the year for urinary obstruction. Apparently, he had an appointment with urologist scheduled at [facility] for TURP in the near future, but this developed before the said appointment. A CT of abdomen and pelvis identified a misplacement of the Cronin catheter, and Urology was consulted, Dr. Mackay did a cystoscopy and a replacement of the Cronin catheter. Since admission, there has been progressive improvement, and his renal function is markedly improved, and his GFR now is at 60. Urinalysis showed greater than 50 wbc's, and they were like 5 different gram-negative rods identified in the urine obtained on admission. It looks like the lab has not processed these organisms further, but I will contact the lab and see if there is any way that they can process, I am afraid that this far away from the collection date that this sample has been discarded. A repeat urine culture from March 13 is no growth at 48 hours. Of note, the patient had been given an oral antimicrobial therapy in alf and that obviously was not effective because of the main issue here was the misplacement of the Cronin catheter. Currently, the patient is sitting up, eating some ice cream. He is feeling much improved. No headaches. 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 He has no sore throat, odynophagia, or dysphagia. No dyspnea or chest pain. No cough or sputum production. No more abdominal pain. No diarrhea or constipation. No joint symptoms. PAST MEDICAL HISTORY: Coronary artery disease, BPH with indwelling Cornin catheter for the past few months, hypertension, gastritis, and renal insufficiency. SOCIAL HISTORY: He is a prisoner at [facility]. Never smoker. No alcoholic beverage use. ALLERGIES: SULFONAMIDE ANTIMICROBIALS. CURRENT MEDICATION LIST: Includes: 1. Tylenol. 2. Norvasc. 3. Ecotrin. 4. Betamethasone. 5. Feosol. 6. Proscar. 7. Apresoline. 8. Meropenem. 9. Reglan. 10. Zofran. 11. Protonix. 12. AZO Standard. 13. Senokot. 14. Zocor. 15. Vancomycin. 16. Tamsulosin. PHYSICAL EXAMINATION: VITAL SIGNS: He has been afebrile since admission. Other vital signs are normal. O2 saturation 94, appears in no distress. SKIN: Exam was not remarkable. The patient has a Cronin catheter in place. NECK: He has no lymphadenopathy. 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 Right sclera is normal. Pupils are equal. Conjunctivae normal. Nasal passages patent. Oral cavity was not remarkable. NECK: Supple. No jugular vein distention. No carotid bruits or thyromegaly. LUNGS: Symmetric. Clear breath sounds. HEART: S1 and S2, regular rate without murmurs. No S3 or S4. ABDOMEN: Soft, not distended or tender. No ascites. No bladder distention. No organomegaly. EXTREMITIES: No joint inflammatory activity noted. Pulses 1+ in dorsalis pedis. Plantar responses are flexor. No clonus. Strength in upper and lower extremities is preserved. NEUROLOGIC: Cognitive function appears to be intact. LABORATORY DATA: White cell count is down from 20 to 14.9, hemoglobin 10, platelets 431, with 85% neutrophils. Creatinine 1.21, which is down from admission when it was 6. Liver profile normal. Albumin 3.0, globulin 3.9. Vancomycin trough 22. Microbiology, as reported above. DIAGNOSTIC DATA: The patient had a HIDA scan, which was normal. Chest x-ray with some haziness. Pelvic CT with noted advancement of the Cronin catheter, but still within the prostatic urethra. After that, it was replaced by Dr. Mackay. ASSESSMENT: 1. Coronary artery disease. 2. Benign prostatic hypertrophy with urinary obstruction and Cronin catheter since the beginning of the year. Awaiting on TURP at [facility]. 3. Misplacement of Cronin catheter balloon with obstruction, acute renal failure due to the outflow obstruction and sepsis. DISCUSSION: The clinical symptoms have markedly improved following resolution of the structural problem after Dr. Mackay replaced the Cronin. Unfortunately, the sample was not further worked up by the lab, so we will have to assume an ESBL organism, put a PICC line and treat him for another few days with ertapenem. Discontinue vancomycin, we would say, another 5 days approximately. Repeat studies will have to be submitted prior to the intervention, the TURP, but that will be done at [facility]. The patient should be able to be transferred back to the unit once the line is in, on Invanz 1 g daily for another 5 to 7 days. Job ID: [id number]
[2019-03-15] MEDS: Tamsulosin HCl 0.4 MG CAP PO SCH (20:44)
[2019-03-15] MEDS: Simvastatin 5 MG TAB PO SCH (20:44)
[2019-03-16] MEDS: Meropenem 2 GM in Sodium Chloride 0.9% 100 ML IVPB SCH ×3 (00:28→17:59)
--- NOTE | 2019-03-16 05:09 | PDOC.FM ---
- Subjective Subjective: Patient doing well this morning. Slept well overnight. Agreeable to current plan of care, including picc line this morning and continued IV abx therapy. - Objective Vital Signs & Weight: Vital Signs (12 hours) Temp Pulse Resp BP Pulse Ox 03/16/19 03:36 95 03/15/19 20:00 95 03/15/19 19:09 97.6 F 89 16 148/79 H 95 03/15/19 17:32 89 16 97 Weight Admit Weight 81.448 kg Weight 81.448 kg I&O: 03/14/19 03/15/19 03/16/19 06:59 06:59 06:59 Intake Total 3530 3100 1325 Output Total 6161 5762 8443 Balance -2936 -6527 -5702 Result Diagrams: 03/16/19 07:27 03/16/19 07:27 Phys Exam - Physical Examination Constitutional: NAD HEENT: moist MMs, sclera anicteric left eye-glass Neck: supple, full ROM Respiratory: no wheezing, clear to auscultation bilateral Cardiovascular: RRR, no significant murmur Gastrointestinal: soft, non-tender Musculoskeletal: no edema, pulses present Neurological: normal sensation, moves all 4 limbs Lymphatic: no nodes Psychiatric: normal affect, A&O x 3 Skin: normal turgor, cap refill <2 seconds Dx/Plan (1) Obstructive uropathy Code(s): N13.9 - OBSTRUCTIVE AND REFLUX UROPATHY, UNSPECIFIED Status: Acute (2) BPH (benign prostatic hyperplasia) Code(s): N40.0 - BENIGN PROSTATIC HYPERPLASIA WITHOUT LOWER URINRY TRACT SYMP Status: Acute (3) Sepsis due to urinary tract infection Code(s): A41.9 - SEPSIS, UNSPECIFIED ORGANISM; N39.0 - URINARY TRACT INFECTION, SITE NOT SPECIFIED Status: Acute (4) GERD (gastroesophageal reflux disease) Code(s): K21.9 - GASTRO-ESOPHAGEAL REFLUX DISEASE WITHOUT ESOPHAGITIS Status: Acute (5) Acute on chronic kidney failure Code(s): N17.9 - ACUTE KIDNEY FAILURE, UNSPECIFIED; N18.9 - CHRONIC KIDNEY DISEASE, UNSPECIFIED Status: Acute (6) CAD (coronary artery disease) Code(s): I25.10 - ATHSCL HEART DISEASE OF [place] CORONARY ARTERY W/O ANG PCTRS Status: Acute (7) HTN (hypertension) Code(s): I10 - ESSENTIAL (PRIMARY) HYPERTENSION Status: Acute (8) Hypokalemia Code(s): E87.6 - HYPOKALEMIA Status: Acute - Plan Plan: 68M with PMHx of BPH, CKD (unknown stage), HTN, CAD, [place] (2006) admitted with sepsis 2/2 UTI 2/2 obstructive uropathy 2/2 BPH and acute on chronic renal failure #Sepsis 2/2 UTI from obstructive uropathy (BPH)-resolved - WBC 17>18.4>24.5>16.2>19.7>14.4>14.9>13.5, patient continues to look better clinically - LA 4.1>1.2 with fluids - Fluid resuscitation in outside ED - Patient started on Zosyn in ED, switched to meropenem and vancomycin given complicated UTI in setting of obstructive uropathy with resulting renal failure. Stopped and started on 750mg Levaquin PO QD -03/13 levaquin stopped and vancomycin and meropenem started, continue - original urine culture was a contaminate. - Procalcitonin significantly elevated at 22 then 27>28.36>14.25>6.53>2.45>1.22> 0.64 - flomax started - finasteride started to help to decrease size of prostate over time -baseline PSA 8.97 - Continue to monitor kidney function -creatinine 8.81>6.19>3.65>2.36>1.40>1.25>1.19 - Kaur catheter in place and draining effectively at this time; urine orange/ yellow in color but patient is on phenazopyridine - Urology, Dr. Mackay, saw patient 03/08 and rec: minimum 21 day antibiotic therapy and to have patient make appointment with [facility] urology prior to discharge for f/u on TURP. -saw patient 03/13 and rec repeat kaur urine culture before switching from levoquin to vanc and meropenem - Continue to follow CBC -repeat urine culture @ 48 hr negative -Dr. Walker, ID, consulted yesterday. Rec picc line with 1g Invanz QD for 5-7 days upon discharge -Waiting for [facility] placement in [facility] before discharge -Paperwork being submitted to [facility] for appointment close to d/c #Acute renal failure 2/2 obstructive uropathy-resolved - Significantly enlarged prostate - creatinine 8.81>6.19>3.65>2.36>1.40>1.25>1.21>1.19 - D/C IVF 03/15 - Continue to monitor electrolytes and kidney function - Urology consulted; see recs above - Given complicated UTI 2/2 obstructive uropathy, started on broad spectrum antibiotics with meropenem and vancomycin - flomax started - finasteride started - Patient with CKD at baseline, but not certain what stage #Anemia- likely 2/2 chronic disease -H/H: 9.7/29.9 -iron 13, TIBC 90, transferrin 72, ferritin 798.92, B12 352 -likely anemia of chronic disease, but possible mixed picture with iron of 13 ( low) -ferrous sulfate 325mg started, continue to monitor -Folate wnl -peripheral smear: absolute neurophilia, normocytic normochromic anemia, thrombocytosis -Awaiting MMA #Hypokalemia-resolved -Potassium 3.7 03/16 -continue to monitor #CKD - Uncertain of baseline, patient has unclear history #HTN: - BPs 120s-140s/60-70s - Amlo 5 started 03/11, increased to 10 on 03/12 - Hydralazine PRN, did not require any overnight #CAD - Continue home medications #GERD - Continue home medications as IV due to nausea and vomiting DVT PPX: SCD's Code Status: Full Diet: Regular Dispo: Medical floor. Urology consulted, following recs. PICC line, d/c as soon as [facility]irmary placement, with invega for following 5-7 days and f/u with [facility] urology. Addendum - Attending - Attending Attestation Date/Time: 03/16/191936 I personally evaluated the patient and discussed the management with Dr. Stearns. I agree with the History, Examination, Assessment and Plan documented above with any addition or exceptions noted below. The patient received his picc line. He will be on invanz on d/c. Waiting on [facility] bed placement in intermediate.
[2019-03-16] MEDS: Metoclopramide HCl 10 MG/2 ML VIAL IVP SCH ×3 (05:50→20:17)
[2019-03-16 07:41] LABS: #Eosinphils 0.3 thou/uL (0.0-0.7); #Lymphocytes 1.2 thou/uL (1.20-3.40); #Monocytes 0.6 thou/uL (0.11-0.59); #Neutrophils 11.3 thou/uL (1.40-6.50); %Basophils 0.3 % (0.0-1.0); %Eosinophils 2.3 % (0.0-10.0); %Lymphocytes 9.2 % (21.0-51.0); %Monocytes 4.2 % (0.0-10.0); Hemoglobin 9.7 g/dL (14.0-18.0); Mean Corpuscular HGB CONC 32.5 g/dL (32.0-36.0); Mean Corpuscular Hemoglobin 29.1 pg (27.0-31.0); Mean Corpuscular Volume 89.4 fL (78.0-98.0); Mean Platelet Volume 7.2 fL (7.4-10.4); Platelet Count 491 thou/uL (130-400); RBC Distribution Width 13.3 % (11.5-14.5); Red Blood Cell (RBC) Count 3.34 mill/uL (4.70-6.10); White Blood Cell (WBC) Count 13.5 thou/uL (4.8-10.8)
[2019-03-16 07:55] LABS: Anion Gap 10 mmol/L (10-20); BUN (Urea Nitrogen) 19 mg/dL (8.4-25.7); Calc. Creatinine Clearance 70 mL/min (70-130); Calcium 7.6 mg/dL (7.8-10.44); Carbon Dioxide 28 mmol/L (23-31); Chloride 105 mmol/L (98-107); Estimated GFR-MDRD 61; Glucose 99 mg/dL (80-115); Potassium 3.7 mmol/L (3.5-5.1); Sodium 139 mmol/L (136-145)
--- NOTE | 2019-03-16 08:44 | PRG ---
DATE OF SERVICE: 03/16/2019 SUBJECTIVE: The patient without complaints. He states that he feels well. OBJECTIVE: VITAL SIGNS: Stable. He is afebrile. Urine output 3650 clear dilute. ABDOMEN: Soft, nontender, and nondistended. No suprapubic tenderness. Currently on IV meropenem. IMPRESSION AND PLAN: A 68-year-old male with history of benign prostatic hyperplasia and chronic urinary retention, presented with urethral Cronin catheter misplaced in the penile/bulbar urethra, chronicity is unknown as he presented with significant bladder distention, bilateral hydro, and renal failure. He required cystoscopic assistance to place a Cronin catheter over guidewire. As such, [facility] facility can no longer replace his Cronin catheter as he had traumatic Cronin catheter placement. I informed the patient that his next urethral Cronin catheter must be changed by his urologist at [facility]. We did attempt to contact Dr. Perry at [facility]; however, no answer back. Our office has emailed their service to call us back as the patient needs to have his catheter changed by Urology Service at [facility]. The patient also informed. From clinical perspective, he may be discharged back to his facility, with indwelling urethral Cronin catheter to gravity. IV meropenem advised by Dr. Walker as he had significant improvement of his infection symptoms transitioning from Levaquin to meropenem. Continue Flomax and Avodart. We will sign off. The patient is stable for discharge today. Addendum: Spoke with resident at [facility]. Clinical history obtained, and need for urology service to exchanges next Cronin catheter. They state that they will contact their attending notify to coordinate close follow-up. Job ID: [id number] [facility]
[2019-03-16] MEDS: Ferrous Sulfate 325 MG TAB PO SCH ×2 (10:00→17:59)
[2019-03-16] MEDS: Amlodipine 10 MG TAB PO SCH (10:00)
[2019-03-16] MEDS: Finasteride 5 MG TAB PO SCH (10:00)
[2019-03-16] MEDS: Aspirin 81 mg Enteric Coated Tablet PO SCH (10:00)
[2019-03-16] MEDS: Betamethasone Val 0.1% Lotion 60 ML BOT TOP SCH ×2 (10:01→19:09)
[2019-03-16] MEDS: Pantoprazole 40 MG VIAL IVP SCH ×2 (10:01→20:17)
--- NOTE | 2019-03-16 10:32 | SPC ---
PICC PLACEMENT ULTRASOUND-GUIDED VENOUS ACCESS: (Peripherally inserted central catheter) DATE: 03/16/2019 HISTORY: 68-year-old male with urinary tract infection requiring long-term IV antibiotics TECHNIQUE: Catheter caliber: 5 [place] Catheter trim length:41.5 cm Catheter lumen number:single Catheter tip location:upper portion of right atrium Vein accessed:left basilic Total fluoroscopy time: 1.3 min. Dose area product: 2773 mGy*cm^2 Signed, informed consent was obtained. A tourniquet was applied at the proximal aspect of the arm. Th e arm was prepped and draped in the usual sterile fashion. A 25-gauge needle was used to applied buffered lidocaine superficially. The vein was punctured with a 21-gauge micropuncture needle under u ltrasound guidance. A 0.018 inch guidewire was advanced through the micropuncture needle and into the vein. Under fluoroscopic guidance, the guidewire was advanced to the superior vena cava. The PICC was flushed and trimmed to the appropriate length. The micropuncture needle was exchanged over the guidewire for a 5 [place] peel-away dilator sheath. The dilator was exchanged over the guidewire for t he PICC, which was then further advanced under fluoroscopy. The sheath and guidewire were removed. The PICC was flushed again and secured in place at the arm after adjustment of tip position. The milla ent tolerated the procedure well. There was no complication. IMPRESSION: Successful placement of PICC (peripherally inserted central catheter).
[2019-03-16] MEDS: Tamsulosin HCl 0.4 MG CAP PO SCH (20:17)
[2019-03-16] MEDS: Simvastatin 5 MG TAB PO SCH (20:17)
[2019-03-17] MEDS: Meropenem 2 GM in Sodium Chloride 0.9% 100 ML IVPB SCH ×3 (01:53→16:55)
--- NOTE | 2019-03-17 05:23 | PDOC.FM ---
- Subjective Subjective: Patient doing well this morning. Agreeable to current plan of care. No complaints. - Objective Vital Signs & Weight: Vital Signs (12 hours) Temp Pulse Resp BP Pulse Ox 03/16/19 20:00 98 03/16/19 19:02 97.7 F 94 20 126/79 98 Weight Admit Weight 81.448 kg Weight 81.448 kg I&O: 03/15/19 03/16/19 03/17/19 06:59 06:59 06:59 Intake Total 3100 2095 960 Output Total 6018 3650 1800 Balance -2950 -1555 -840 Result Diagrams: 03/16/19 07:27 03/16/19 07:27 Phys Exam - Physical Examination Constitutional: NAD HEENT: moist MMs, sclera anicteric left eye-glass Neck: supple, full ROM Respiratory: no wheezing, clear to auscultation bilateral Cardiovascular: RRR, no significant murmur Gastrointestinal: soft, non-tender Musculoskeletal: no edema, pulses present Neurological: normal sensation, moves all 4 limbs Lymphatic: no nodes Psychiatric: normal affect, A&O x 3 Skin: normal turgor, cap refill <2 seconds Dx/Plan (1) Obstructive uropathy Code(s): N13.9 - OBSTRUCTIVE AND REFLUX UROPATHY, UNSPECIFIED Status: Acute (2) BPH (benign prostatic hyperplasia) Code(s): N40.0 - BENIGN PROSTATIC HYPERPLASIA WITHOUT LOWER URINRY TRACT SYMP Status: Acute (3) Sepsis due to urinary tract infection Code(s): A41.9 - SEPSIS, UNSPECIFIED ORGANISM; N39.0 - URINARY TRACT INFECTION, SITE NOT SPECIFIED Status: Acute (4) GERD (gastroesophageal reflux disease) Code(s): K21.9 - GASTRO-ESOPHAGEAL REFLUX DISEASE WITHOUT ESOPHAGITIS Status: Acute (5) Acute on chronic kidney failure Code(s): N17.9 - ACUTE KIDNEY FAILURE, UNSPECIFIED; N18.9 - CHRONIC KIDNEY DISEASE, UNSPECIFIED Status: Acute (6) CAD (coronary artery disease) Code(s): I25.10 - ATHSCL HEART DISEASE OF [place] CORONARY ARTERY W/O ANG PCTRS Status: Acute (7) HTN (hypertension) Code(s): I10 - ESSENTIAL (PRIMARY) HYPERTENSION Status: Acute (8) Hypokalemia Code(s): E87.6 - HYPOKALEMIA Status: Acute - Plan Plan: 68M with PMHx of BPH, CKD (unknown stage), HTN, CAD, [place] (2006) admitted with sepsis 2/2 UTI 2/2 obstructive uropathy 2/2 BPH and acute on chronic renal failure #Sepsis 2/2 UTI from obstructive uropathy (BPH)-resolved - WBC 17>18.4>24.5>16.2>19.7>14.4>14.9>13.5, patient continues to look better clinically - LA 4.1>1.2 with fluids - Fluid resuscitation in outside ED - Patient started on Zosyn in ED, switched to meropenem and vancomycin given complicated UTI in setting of obstructive uropathy with resulting renal failure. Stopped and started on 750mg Levaquin PO QD -03/17: on meropenem currently - original urine culture was a contaminate. - Procalcitonin significantly elevated at 22 then 27>28.36>14.25>6.53>2.45>1.22> 0.64 - flomax - finasteride -baseline PSA 8.97 - creatinine 8.81>6.19>3.65>2.36>1.40>1.25>1.19 - Cronin catheter in place and draining effectively at this time; urine orange/ yellow in color but patient is on phenazopyridine - Urology, Dr. Mackay, saw patient 03/08 and rec: have patient make appointment with [facility] urology prior to discharge for f/u on TURP. -repeat urine culture @ 48 hr negative -Dr. Walker, ID, consulted. Rec picc line with 1g Invanz QD until 03/22 - Patient tolerated PICC line placement well yesterday -Waiting for [facility] placement before discharge -Paperwork submitted 03/17 [facility] #Acute renal failure 2/2 obstructive uropathy-resolved - Significantly enlarged prostate - creatinine 8.81>6.19>3.65>2.36>1.40>1.25>1.21>1.19 - Urology consulted; see recs above - flomax - finasteride - Patient with CKD at baseline, but not certain what stage #Anemia- likely 2/2 chronic disease -H/H: 9.7/29.9 -iron 13, TIBC 90, transferrin 72, ferritin 798.92, B12 352 -likely anemia of chronic disease, but possible mixed picture with iron of 13 ( low) -ferrous sulfate 325mg started, continue to monitor -Folate wnl -peripheral smear: absolute neurophilia, normocytic normochromic anemia, thrombocytosis -Awaiting MMA #Hypokalemia-resolved -Potassium 3.7 03/16 #CKD - Uncertain of baseline, patient has unclear history #HTN: - BPs 110s-140s/60-70s - Amlo 5 started 03/11, increased to 10 on 03/12 - Hydralazine PRN, did not require any overnight #CAD - Continue home medications #GERD - Continue home medications as IV due to nausea and vomiting DVT PPX: SCD's Code Status: Full Diet: Regular Dispo: Medical floor. PICC line 03/17, d/c as soon as infirmary placement, with invega until 03/22 and f/u with [facility] urology. Addendum - Attending - Attending Attestation Date/Time: 03/17/19 9894 I personally evaluated the patient and discussed the management with Dr. Stearns. I agree with the History, Examination, Assessment and Plan documented above with any addition or exceptions noted below. Patient remains on IV antibiotics. [place] [facility] [place] [facility] [place].
[2019-03-17] MEDS: Metoclopramide HCl 10 MG/2 ML VIAL IVP SCH ×3 (05:39→21:10)
[2019-03-17] MEDS: Aspirin 81 mg Enteric Coated Tablet PO SCH (08:20)
[2019-03-17] MEDS: Betamethasone Val 0.1% Lotion 60 ML BOT TOP SCH ×2 (08:20→21:11)
[2019-03-17] MEDS: Ferrous Sulfate 325 MG TAB PO SCH ×2 (08:20→16:55)
[2019-03-17] MEDS: Finasteride 5 MG TAB PO SCH (08:20)
[2019-03-17] MEDS: Amlodipine 10 MG TAB PO SCH (08:20)
[2019-03-17] MEDS: Pantoprazole 40 MG VIAL IVP SCH ×2 (08:21→21:11)
[2019-03-17] MEDS: Simvastatin 5 MG TAB PO SCH (21:11)
[2019-03-17] MEDS: Tamsulosin HCl 0.4 MG CAP PO SCH (21:11)
[2019-03-18] MEDS: Meropenem 2 GM in Sodium Chloride 0.9% 100 ML IVPB SCH ×3 (01:50→16:47)
--- NOTE | 2019-03-18 05:22 | PDOC.FM ---
- Subjective Subjective: Patient doing well this morning. Denies cp, sob, abdominal pain. Agreeable to current plan of care. - Objective Vital Signs & Weight: Vital Signs (12 hours) Temp Pulse Resp BP Pulse Ox 03/17/19 20:00 94 L 03/17/19 19:19 97.3 F L 87 20 117/68 94 L Weight Admit Weight 81.448 kg Weight 81.448 kg I&O: 03/16/19 03/17/19 03/18/19 06:59 06:59 06:59 Intake Total 2145 2019 960 Output Total 3650 3600 1500 Balance -1505 -1580 -540 Result Diagrams: 03/16/19 07:27 03/16/19 07:27 Phys Exam - Physical Examination Constitutional: NAD HEENT: moist MMs, sclera anicteric Neck: supple, full ROM Respiratory: no wheezing, clear to auscultation bilateral Cardiovascular: RRR, no significant murmur Gastrointestinal: soft, non-tender Musculoskeletal: no edema, pulses present Neurological: normal sensation, moves all 4 limbs Lymphatic: no nodes Psychiatric: normal affect, A&O x 3 Skin: normal turgor, cap refill <2 seconds Dx/Plan (1) Obstructive uropathy Code(s): N13.9 - OBSTRUCTIVE AND REFLUX UROPATHY, UNSPECIFIED Status: Acute (2) BPH (benign prostatic hyperplasia) Code(s): N40.0 - BENIGN PROSTATIC HYPERPLASIA WITHOUT LOWER URINRY TRACT SYMP Status: Acute (3) Sepsis due to urinary tract infection Code(s): A41.9 - SEPSIS, UNSPECIFIED ORGANISM; N39.0 - URINARY TRACT INFECTION, SITE NOT SPECIFIED Status: Acute (4) GERD (gastroesophageal reflux disease) Code(s): K21.9 - GASTRO-ESOPHAGEAL REFLUX DISEASE WITHOUT ESOPHAGITIS Status: Acute (5) Acute on chronic kidney failure Code(s): N17.9 - ACUTE KIDNEY FAILURE, UNSPECIFIED; N18.9 - CHRONIC KIDNEY DISEASE, UNSPECIFIED Status: Acute (6) CAD (coronary artery disease) Code(s): I25.10 - ATHSCL HEART DISEASE OF [place] CORONARY ARTERY W/O ANG PCTRS Status: Acute (7) HTN (hypertension) Code(s): I10 - ESSENTIAL (PRIMARY) HYPERTENSION Status: Acute (8) Hypokalemia Code(s): E87.6 - HYPOKALEMIA Status: Acute - Plan Plan: 68M with PMHx of BPH, CKD (unknown stage), HTN, CAD, [place] (2006) admitted with sepsis 2/2 UTI 2/2 obstructive uropathy 2/2 BPH and acute on chronic renal failure #Sepsis 2/2 UTI from obstructive uropathy (BPH)-resolved - WBC 17>18.4>24.5>16.2>19.7>14.4>14.9>13.5, patient continues to look better clinically - LA 4.1>1.2 with fluids - Fluid resuscitation in outside ED - Patient started on Zosyn in ED, switched to meropenem and vancomycin given complicated UTI in setting of obstructive uropathy with resulting renal failure. Stopped and started on 750mg Levaquin PO QD -03/17: on meropenem currently - original urine culture was a contaminate. - Procalcitonin significantly elevated at 22 then 27>28.36>14.25>6.53>2.45>1.22> 0.64 - flomax - finasteride -baseline PSA 8.97 - creatinine 8.81>6.19>3.65>2.36>1.40>1.25>1.19 - Cronin catheter in place and draining effectively at this time; urine orange/ yellow in color but patient is on phenazopyridine - Urology, Dr. Mackay, saw patient 03/08 and rec: have patient make appointment with [facility] urology prior to discharge for f/u on TURP. -repeat urine culture @ 48 hr negative -Dr. Walker, ID, consulted. Rec picc line with 1g Invanz QD until 03/22, continue meropenem for now - Patient tolerated PICC line placement well -Waiting for infirmary placement before discharge -Paperwork submitted 03/16 [facility] #Acute renal failure 2/2 obstructive uropathy-resolved - Significantly enlarged prostate - creatinine 8.81>6.19>3.65>2.36>1.40>1.25>1.21>1.19 - Urology consulted; see recs above - flomax - finasteride - Patient with CKD at baseline, but not certain what stage #Anemia- likely 2/2 chronic disease -H/H: 9.7/29.9 -iron 13, TIBC 90, transferrin 72, ferritin 798.92, B12 352 -likely anemia of chronic disease, but possible mixed picture with iron of 13 ( low) -ferrous sulfate 325mg started, continue to monitor -Folate wnl -peripheral smear: absolute neurophilia, normocytic normochromic anemia, thrombocytosis -Awaiting MMA #Hypokalemia-resolved -Potassium 3.7 03/16 #CKD - Uncertain of baseline, patient has unclear history #HTN: - BPs 100s-140s/60-70s - Amlo 5 started 03/11, increased to 10 on 03/12 - Hydralazine PRN, did not require any overnight #CAD - Continue home medications #GERD - Continue home medications as IV due to nausea and vomiting DVT PPX: SCD's Code Status: Full Diet: Regular Dispo: Medical floor. PICC line 03/16, d/c as soon as infirmary placement, with invega until 03/22 and f/u with [facility] urology. Addendum - Attending - Attending Attestation Date/Time: 03/18/19 9873 I personally evaluated the patient and discussed the management with Dr. Stearns. I agree with the History, Examination, Assessment and Plan documented above with any addition or exceptions noted below. Pt is resting comfortably. He remains on IV meropenem. Waiting on [facility] bed.
[2019-03-18] MEDS: Metoclopramide HCl 10 MG/2 ML VIAL IVP SCH ×3 (05:32→21:07)
[2019-03-18] MEDS: Aspirin 81 mg Enteric Coated Tablet PO SCH (07:38)
[2019-03-18] MEDS: Finasteride 5 MG TAB PO SCH (07:38)
[2019-03-18] MEDS: Pantoprazole 40 MG VIAL IVP SCH ×2 (07:39→21:07)
[2019-03-18] MEDS: Ferrous Sulfate 325 MG TAB PO SCH ×2 (07:39→16:47)
[2019-03-18] MEDS: Amlodipine 10 MG TAB PO SCH (07:40)
[2019-03-18] MEDS: Betamethasone Val 0.1% Lotion 60 ML BOT TOP SCH ×2 (07:49→21:03)
[2019-03-18] MEDS: Simvastatin 5 MG TAB PO SCH (21:07)
[2019-03-18] MEDS: Tamsulosin HCl 0.4 MG CAP PO SCH (21:07)
[2019-03-19] MEDS: Meropenem 2 GM in Sodium Chloride 0.9% 100 ML IVPB SCH ×3 (00:14→17:45)
[2019-03-19] MEDS: Metoclopramide HCl 10 MG/2 ML VIAL IVP SCH ×3 (05:10→21:01)
[2019-03-19 08:09] LABS: Methylmalonic Acid 730 nmol/L (0-378)
[2019-03-19] MEDS: Aspirin 81 mg Enteric Coated Tablet PO SCH (08:23)
[2019-03-19] MEDS: Amlodipine 10 MG TAB PO SCH (08:23)
[2019-03-19] MEDS: Betamethasone Val 0.1% Lotion 60 ML BOT TOP SCH ×2 (08:23→20:05)
[2019-03-19] MEDS: Ferrous Sulfate 325 MG TAB PO SCH ×2 (08:23→17:14)
[2019-03-19] MEDS: Finasteride 5 MG TAB PO SCH (08:23)
[2019-03-19] MEDS: Pantoprazole 40 MG VIAL IVP SCH ×2 (08:37→20:08)
--- NOTE | 2019-03-19 11:22 | PDOC.FM ---
- Subjective Subjective: The patient was resting comfortably in his restraints at the time of the evaluation. He had no overnight complaints, and denies any headaches, fevers, chills, abdominal pain or urinary symptoms. No overnight events reported by nursing staff or law enforcement personnel. - Objective Vital Signs & Weight: Vital Signs (12 hours) Temp Pulse Resp BP BP Pulse Ox 03/19/19 08:23 85 129/75 03/19/19 08:00 95 03/19/19 07:40 98.0 F 85 16 129/75 95 03/19/19 05:11 94 L Weight Admit Weight 81.448 kg Weight 81.448 kg I&O: 03/18/19 03/19/19 03/20/19 06:59 06:59 06:59 Intake Total 1300 1780 Output Total 1500 1725 Balance -200 55 Result Diagrams: 03/16/19 07:27 03/16/19 07:27 Phys Exam - Physical Examination Constitutional: NAD HEENT: PERRLA, moist MMs, sclera anicteric, oral pharynx no lesions Neck: supple, full ROM Respiratory: no wheezing, no rales, no rhonchi Cardiovascular: RRR, no significant murmur, no rub Gastrointestinal: soft, non-tender, no distention Musculoskeletal: no edema, pulses present Neurological: non-focal, moves all 4 limbs Psychiatric: normal affect, A&O x 3 Skin: no rash Dx/Plan (1) Acute on chronic kidney failure Code(s): N17.9 - ACUTE KIDNEY FAILURE, UNSPECIFIED; N18.9 - CHRONIC KIDNEY DISEASE, UNSPECIFIED Status: Acute (2) BPH (benign prostatic hyperplasia) Code(s): N40.0 - BENIGN PROSTATIC HYPERPLASIA WITHOUT LOWER URINRY TRACT SYMP Status: Acute (3) CAD (coronary artery disease) Code(s): I25.10 - ATHSCL HEART DISEASE OF [place] CORONARY ARTERY W/O ANG PCTRS Status: Acute (4) HTN (hypertension) Code(s): I10 - ESSENTIAL (PRIMARY) HYPERTENSION Status: Acute (5) Obstructive uropathy Code(s): N13.9 - OBSTRUCTIVE AND REFLUX UROPATHY, UNSPECIFIED Status: Acute (6) Sepsis due to urinary tract infection Code(s): A41.9 - SEPSIS, UNSPECIFIED ORGANISM; N39.0 - URINARY TRACT INFECTION, SITE NOT SPECIFIED Status: Acute - Plan Plan: 1. Sepsis, 2/2 to UTI from Obstructive Uropathy (BPH) - Resolved -WBC: 13.5, trending down from 17 - max of 24.5 -Lactic Acid: 1.2, down from 4.1 after fluid resuscitation -Procal: 0.64, trending down from 22 -Baseline PSA: 8.97 -Cr: 1.2, down from 8.81 -Zosyn started in ED, switched to Meropenem and Vancomycin given complicated UTI in setting of obstructive uropathy with resulting renal failure. -Flomax and Finasteride -Cronin catheter in place and draining effectively at this time -Urology (Dr. Mackay) saw patient on 03/08 and recommended appointment with [facility] Urology prior to discharge for f/u on TURP -ID consulted - recommended PICC line with 1g Invanz QD until 03/22, continue Meropenem for now -Patient tolerated PICC line placement well -Waiting for infirmary placement before discharge - paperwork submitted to [facility] on 03/16 2. Acute Renal Failure, 2/2 to Obstructive Uropathy (BPH) - Resolved -Significantly enlarged prostate -Cr: 1.2, down from 8.81 -Flomax and Finasteride -Urology consulted, See #1 3. Anemia, likely 2/2 to Chronic Disease -H/H: 9.7/29.9 -Fe: 13 / TIBC: 90 / Transferrin: 72 / Ferritin: 798.92 / B12: 352 -Likely Anemia of Chronic Disease, but possible mixed picture -Ferrous Sulfate 325mg started, continue to monitor -Folate: WNL -Peripheral Smear: Absolute Neurophilia, Normocytic Normochromic Anemia, Thrombocytosis -MMA: 770 4. Hypokalemia, resolved -K: 3.7 on 03/16/19 5. CKD -Uncertain of baseline, patient has unclear history 6 HTN -BPs in 100s-140s/60-70s -Amlodipine 5 mg started 03/11/19, increased to 10 mg on 03/12/19 -Hydralazine PRN 7. CAD -Continue home medication regimen 8. GERD -Continue home medication regimen DVT PPX: SCD's Code Status: Full Diet: Regular Dispo: Currently stable on Medical Floor. Consult Case Management and [facility] in order to facilitate infirmary placement and ensure f/u with [facility] Urology. Addendum - Attending - Attending Attestation Date/Time: 03/19/19 0306 I personally evaluated the patient and discussed the management with Dr. Koehler. I agree with the History, Examination, Assessment and Plan documented above with any addition or exceptions noted below. Patient here for Sepsis/UTI in setting of chronic indwelling Cronin catheter. He is completing abx therapy. Awaiting transfer to [facility]. Continue current mgmt at this time.
[2019-03-19] MEDS: Simvastatin 5 MG TAB PO SCH (20:04)
[2019-03-19] MEDS: Tamsulosin HCl 0.4 MG CAP PO SCH (20:04)
[2019-03-20] MEDS: Meropenem 2 GM in Sodium Chloride 0.9% 100 ML IVPB SCH ×3 (01:36→19:55)
[2019-03-20] MEDS: Metoclopramide HCl 10 MG/2 ML VIAL IVP SCH ×2 (05:14→17:24)
--- NOTE | 2019-03-20 07:46 | PDOC.FM ---
- Subjective Subjective: Patient was sleeping comfortably at the time of evaluation, and was easily arousable. Per the patient and law enforcement personnel present in the room, there were no overnight events or episodes of fevers, chills, headaches, chest pain, shortness of breath, abdominal pain, or urinary symptoms. - Objective MAR Reviewed: Yes Vital Signs & Weight: Vital Signs (12 hours) Temp Pulse Resp BP Pulse Ox 03/19/19 20:04 97 03/19/19 19:56 98.1 F 91 18 129/79 97 Weight Admit Weight 81.448 kg Weight 81.448 kg I&O: 03/19/19 03/20/19 03/21/19 06:59 06:59 06:59 Intake Total 1780 1440 Output Total 1725 2925 Balance 55 -1485 Result Diagrams: 03/16/19 07:27 03/16/19 07:27 Phys Exam - Physical Examination Constitutional: NAD HEENT: moist MMs, sclera anicteric, oral pharynx no lesions Prosthetic left eye Neck: no nodes, supple, full ROM Respiratory: no wheezing, no rales, no rhonchi, clear to auscultation bilateral Cardiovascular: RRR, no significant murmur, no rub Gastrointestinal: soft, non-tender, no distention, positive bowel sounds Musculoskeletal: no edema, pulses present Neurological: non-focal, moves all 4 limbs Lymphatic: no nodes Psychiatric: normal affect Skin: no rash Dx/Plan (1) Acute on chronic kidney failure Code(s): N17.9 - ACUTE KIDNEY FAILURE, UNSPECIFIED; N18.9 - CHRONIC KIDNEY DISEASE, UNSPECIFIED Status: Acute (2) BPH (benign prostatic hyperplasia) Code(s): N40.0 - BENIGN PROSTATIC HYPERPLASIA WITHOUT LOWER URINRY TRACT SYMP Status: Acute (3) CAD (coronary artery disease) Code(s): I25.10 - ATHSCL HEART DISEASE OF [place] CORONARY ARTERY W/O ANG PCTRS Status: Acute (4) HTN (hypertension) Code(s): I10 - ESSENTIAL (PRIMARY) HYPERTENSION Status: Acute (5) Obstructive uropathy Code(s): N13.9 - OBSTRUCTIVE AND REFLUX UROPATHY, UNSPECIFIED Status: Acute (6) Sepsis due to urinary tract infection Code(s): A41.9 - SEPSIS, UNSPECIFIED ORGANISM; N39.0 - URINARY TRACT INFECTION, SITE NOT SPECIFIED Status: Acute - Plan Plan: 1. Sepsis, 2/2 to UTI from Obstructive Uropathy (BPH) - Resolved -WBC: 13.5, trending down from 17 - max of 24.5 -Lactic Acid: 1.2, down from 4.1 after fluid resuscitation -Procal: 0.64, trending down from 22 -Baseline PSA: 8.97 -Cr: 1.2, down from 8.81 -Zosyn started in ED, switched to Meropenem and Vancomycin given complicated UTI in setting of obstructive uropathy with resulting renal failure. -Flomax and Finasteride administered to relieve BPH -Kaur catheter in place and draining effectively at this time -Urology (Dr. Mackay) saw patient on 03/08 and recommended appointment with [facility] Urology prior to discharge for f/u on TURP -ID consulted - recommended PICC line with 1g Invanz QD until 03/22, continue Meropenem for now -Patient tolerated PICC line placement well -Will order additional CBC / CMP on 03/20/19 -Waiting for [facility] placement before discharge - paperwork submitted to [facility] on 03/16 2. Acute Renal Failure, 2/2 to Obstructive Uropathy (BPH) - Resolved -Significantly enlarged prostate -Cr: 1.2, down from 8.81 -Flomax and Finasteride administered to relieve BPH -Urology consulted, See #1 3. Anemia, likely 2/2 to Chronic Disease -H/H: 9.7/29.9 -Fe: 13 / TIBC: 90 / Transferrin: 72 / Ferritin: 798.92 / B12: 352 -Likely Anemia of Chronic Disease, but possible mixed picture -Ferrous Sulfate 325mg started, continue to monitor -Folate: WNL -Peripheral Smear: Absolute Neurophilia, Normocytic Normochromic Anemia, Thrombocytosis -MMA: 770 4. Hypokalemia, resolved -K: 3.7 on 03/16/19 5. CKD -Uncertain of baseline, patient has unclear history 6 HTN -Most recent BP was 129/75 - appears to be well-controlled at this time -Amlodipine 5 mg started 03/11/19, increased to 10 mg on 03/12/19 -Hydralazine PRN 7. CAD -Continue home medication regimen 8. GERD -Continue home medication regimen DVT PPX: SCD's Code Status: Full Diet: Regular Dispo: Currently stable on Medical Floor. Reengage Case Management and [facility] in order to facilitate infirmary placement and ensure f/u with [facility] Urology. Addendum - Attending - Attending Attestation Date/Time: 03/20/19 5067 I personally evaluated the patient and discussed the management with Dr. Koehler. I agree with the History, Examination, Assessment and Plan documented above with any addition or exceptions noted below. Patient here for treatment of UTI with IV abx. We are awaiting placement at [facility] bed. He has chronic indwelling kaur that will need URology evaluation in the [facility] system. Awaiting transfer to facility. Otherwise stable for discharge.
[2019-03-20 09:03] LABS: #Basophils 0.1 thou/uL (0.0-0.2); #Eosinphils 0.2 thou/uL (0.0-0.7); #Lymphocytes 1.3 thou/uL (1.20-3.40); #Monocytes 0.6 thou/uL (0.11-0.59); #Neutrophils 6.7 thou/uL (1.40-6.50); %Basophils 0.6 % (0.0-1.0); %Eosinophils 2.4 % (0.0-10.0); %Lymphocytes 14.4 % (21.0-51.0); %Monocytes 6.4 % (0.0-10.0); %Neutrophils 76.1 % (42.0-75.0); Hemoglobin 10.9 g/dL (14.0-18.0); Mean Corpuscular HGB CONC 31.8 g/dL (32.0-36.0); Mean Corpuscular Volume 91.1 fL (78.0-98.0); Mean Platelet Volume 7.8 fL (7.4-10.4); Platelet Count 435 thou/uL (130-400); RBC Distribution Width 13.6 % (11.5-14.5); Red Blood Cell (RBC) Count 3.75 mill/uL (4.70-6.10); White Blood Cell (WBC) Count 8.8 thou/uL (4.8-10.8)
[2019-03-20 09:19] LABS: Anion Gap 11 mmol/L (10-20); BUN (Urea Nitrogen) 25 mg/dL (8.4-25.7); Calc. Creatinine Clearance 61 mL/min (70-130); Calcium 8.5 mg/dL (7.8-10.44); Carbon Dioxide 22 mmol/L (23-31); Chloride 107 mmol/L (98-107); Estimated GFR-MDRD 52; Glucose 85 mg/dL (80-115); Potassium 4.4 mmol/L (3.5-5.1); Sodium 136 mmol/L (136-145)
[2019-03-20] MEDS: Aspirin 81 mg Enteric Coated Tablet PO SCH (09:28)
[2019-03-20] MEDS: Pantoprazole 40 MG VIAL IVP SCH ×2 (09:28→20:26)
[2019-03-20] MEDS: Ferrous Sulfate 325 MG TAB PO SCH ×2 (09:28→17:34)
[2019-03-20] MEDS: Finasteride 5 MG TAB PO SCH (09:28)
[2019-03-20] MEDS: Betamethasone Val 0.1% Lotion 60 ML BOT TOP SCH ×2 (09:31→20:45)
[2019-03-20] MEDS: Amlodipine 10 MG TAB PO SCH (09:31)
[2019-03-20] MEDS ORDERED: Meropenem 2 GM in Sodium Chloride 0.9% 100 ML IVPB SCH (20:00)
[2019-03-20] MEDS: Simvastatin 5 MG TAB PO SCH (20:26)
[2019-03-20] MEDS: Tamsulosin HCl 0.4 MG CAP PO SCH (20:26)
[2019-03-21] MEDS ORDERED: Metoclopramide HCl 10 MG/2 ML VIAL IVP SCH (01:00)
[2019-03-21 01:37] VITALS: BP 149/76; TEMP 98.6
--- NOTE | 2019-03-22 09:59 | DIS ---
DATE OF ADMISSION: 03/07/2019 DATE OF DISCHARGE: 03/21/2019 RESIDENT: Augustin Koehler MD CONSULTS: 1. Urology, Dr. Mackay. 2. Nuclear Medicine, Dr. Estrada. PROCEDURES: Pelvic CT without contrast, CT abdomen and pelvis without contrast, bedside flexible cystoscopy, chest x-ray, HIDA scan, peripherally inserted central catheter placement under ultrasound-guided venous access. PRIMARY DIAGNOSIS: Sepsis secondary to urinary tract infection, secondary to urinary retention from uncontrolled benign prostatic hyperplasia. SECONDARY DIAGNOSES: Obstructive uropathy secondary to benign prostatic hyperplasia, gastroesophageal reflux disease, acute on chronic kidney failure, coronary artery disease, hypertension, anemia, hypokalemia. DISCHARGE MEDICATIONS: 1. Amlodipine 10 mg. 2. Finasteride 5 mg. 3. Meropenem 2 g. 4. Azo 195 mg. 5. Tamsulosin 0.4 mg. DISCONTINUED MEDICATIONS: 1. Acetaminophen 650 mg. 2. Aspirin 81 mg. 3. Ferrous sulphate 325 mg. 4. Hydralazine 10 mg. 5. Metoclopramide 10 mg. 6. Ondansetron 4 mg. 7. Pantoprazole 40 mg. 8. Simvastatin 10 mg. HISTORY OF PRESENT ILLNESS/HOSPITAL COURSE: Mr. Mckenzie is a 68-year-old male who presented from a local [facility]dc following a Cronin catheter replacement at his unit. The patient stated that he was feeling bad, had decreasing urinary output through the Cronin. He was concerned that the [facility] was disregarding his symptoms. It was found that the Cronin catheter was improperly placed with marked dilation of the penile urethra. The patient was found to have a white count of 17.8, eventually trending up to as high as 33.8. Sepsis criteria were met. Antibiotics were started. Based on bacterial cultures and susceptibility, a regimen of meropenem was started following placement of a peripherally inserted central catheter. The patient began recovering well. He was able to tolerate oral intake and his urinary catheter was draining appropriately. He also had appropriate bowel movements. The patient conversed that he was also feeling better with both physician and nursing staff. At the time of discharge, his white blood cell count had returned to normal limits at 8.8, his hemoglobin remained low at 10.9 as was his hematocrit at 34.2, however, this is likely secondary to chronic changes. Sodium level was 136, potassium was 4.4, chloride 107, carbon dioxide 22, BUN 25, creatinine 1.37. Chest x-ray was normal. Followup CT scan of the pelvis revealed appropriate placement of the patient's Cronin catheter. HIDA scan revealed normal findings and the patient's peripherally inserted central catheter was found to have appropriate placement. DISPOSITION: Stable. DISCHARGE INSTRUCTIONS: 1. Location: [facility]. 2. Diet: Carbohydrate conscious. 3. Activity: Ad maldonado. 4. Followup: The patient required 2 additional days of antibiotic treatment with meropenem. The patient was advised to follow up with Dr. Walker, Infectious Disease as well as [facility] Urology for a scheduled transurethral prostatic resection. Job ID: [id number]
--- NOTE | 2019-03-23 08:14 | PQF ---
[employer]ist Crystal Reports Winform ViewerCASTLESCHFORMERLY VID[facility] RO[facility] HOSPITALKINGSLEY Nicole ANNA MD [id number] [id number] [id number] CLINICAL DOCUMENTATION CLARIFICATION FORM: POST DISCHARGE Addendum to original discharge summary date: ____ Late entry note date: __ DATE: 03/23/2019 ATTN : SHABANA GARCIA Please exercise your independent, professional judgment in responding to the clarification form. Clinical indicators are provided on the bottom of this form for your review Please check appropriate box(s): [ ] UTI due to Kaur catheter [ ] UTI not due to Kaur catheter [ ] Other diagnosis [ ] Unable to determine In addition, please specify: Present on Admission (POA): [ ] Yes [ ] No [ ] Unable to determine For continuity of documentation, please document condition throughout progress notes and discharge summary. Thank You. CLINICAL INDICATORS - SIGNS / SYMPTOMS / LABS Could not pee over the last 9 months - Documented in H&P on 03/07 by Madeline Melendez MD he had kaur catheter placement for his BPH causing urinary retention - Documented in H&P on 03/07 by Madeline Melendez MD UTI - Documented in H&P on 03/07 by Madeline Melendez MD Malplaced uretheral Kaur catheter - Documented in Operative report he had chronic indwelling catheter- Documented in consultation on 03/07 by Debbie silvestre MD catheter was subsequently removed by ER -Documented in consultation on 03/07 by Debbie silvestre MD RISK FACTORS BPH - Documented in H&P on 03/07 by Madeline Melendez MD sepsis due to UTI - Documented in H&P on 03/07 by Madeline Melendez MD CKD- Documented in family medicine PNs on 03/09 by Sandhya Stearns MD TREATMENT: started on Zosyn in ED, switched to meropenem and vancomycin given - Documented in family medicine PNs on 03/08 by Sandhya Stearns MD Kaur cath changed - Operative report [employer]ist [employer] Winform Viewer (This form is maintained as a part of the permanent medical record) 2014 [employer]. All Rights Reserved [email or web address] [not provided] [email or web address]
== END 2019-03-21 00:15 | DRG 872 ==
LOC: ERS 06:00 → EEVIPCON 06:00 → ERHOLD 07:18 → T4-B 14:23
PROVIDERS: ADMIT Family Medicine; ATTEND Family Medicine
PROC: 0T9B80Z Drainage of Bladder with Drainage Device, Via Natural or Artificial Opening Endoscopic (ICD-10-PCS; principal; 2019-03-07)
PROC: 02H633Z Insertion of Infusion Device into Right Atrium, Percutaneous Approach (ICD-10-PCS; 2019-03-16)
PROC: B244YZZ Ultrasonography of Right Heart using Other Contrast (ICD-10-PCS; 2019-03-16)
DX: A41.9 Sepsis, unspecified organism (principal); N17.9 Acute kidney failure, unspecified; N13.8 Other obstructive and reflux uropathy; T83.021A Displacement of indwelling urethral catheter, initial encounter; I25.10 Atherosclerotic heart disease of native coronary artery without angina pectoris; I12.9 Hypertensive chronic kidney disease with stage 1 through stage 4 chronic kidney disease, or unspecified chronic kidney disease; N18.9 Chronic kidney disease, unspecified; K21.9 Gastro-esophageal reflux disease without esophagitis; N40.1 Benign prostatic hyperplasia with lower urinary tract symptoms; D63.1 Anemia in chronic kidney disease; Z88.2 Allergy status to sulfonamides; Z91.010 Allergy to peanuts; Z79.899 Other long term (current) drug therapy; Z79.82 Long term (current) use of aspirin; I25.2 Old myocardial infarction; E87.6 Hypokalemia; R33.8 Other retention of urine; N13.9 Obstructive and reflux uropathy, unspecified
CPT/HCPCS: 36415; 36569; 51702; 71045; 72192; 74176; 78227; 80048; 80202; 82274; 82607; 82728; 82747; 83540; 83550; 83605; 83921; 84145; 84466; 85025; 85060; 87086; 87324; 87449; A9537; C1751; C9113; G0103; J0360; J1644; J2185; J2765; J3370; J3490; J7050; Q0162; Q0169

== ENCOUNTER 2019-07-07 13:14 | Emergency (ER) | payer OTHER ==
--- NOTE | 2019-07-07 14:01 | RAD ---
EXAM: Single view of the chest HISTORY: Near syncope COMPARISON: 03/07/2019 FINDINGS: Single view of the chest shows a normal sized cardiomediastinal silhouette. There is no gisella dence of consolidation, mass, or pleural effusion. The bones are unremarkable. IMPRESSION: No evidence of acute cardiopulmonary disease
[2019-07-07 14:31] LABS: Bacteria/HPF None Seen HPF (None Seen); Bilirubin Negative (Negative); Blood, Urine 1+ (Negative); Clarity Clear (Clear); Glucose, Urine (Dipstick) Normal (Negative); Leukocyte 500 Leu/uL (Negative); Nitrite Negative (Negative); Protein, Urine (Dipstick) 20 mg/dL (Neg-Trace); Squamous Epithelial 0-3 HPF (0-3); Transitional Epithelial 0-3 HPF (None Seen); Urobilinogen Normal mg/dL (Less than 2); WBC/HPF 21-50 HPF (0-3)
[2019-07-07 14:50] LABS: #Eosinphils 0.1 thou/uL (0.0-0.7); #Lymphocytes 0.7 thou/uL (1.20-3.40); #Monocytes 0.4 thou/uL (0.11-0.59); #Neutrophils 6.9 thou/uL (1.40-6.50); %Basophils 0.1 % (0.0-1.0); %Lymphocytes 9.1 % (21.0-51.0); %Monocytes 4.7 % (0.0-10.0); %Neutrophils 85.1 % (42.0-75.0); Hemoglobin 12.5 g/dL (14.0-18.0); Mean Corpuscular HGB CONC 33.5 g/dL (32.0-36.0); Mean Corpuscular Hemoglobin 30.8 pg (27.0-31.0); Mean Corpuscular Volume 91.8 fL (78.0-98.0); Mean Platelet Volume 8.4 fL (7.4-10.4); Platelet Count 184 thou/uL (130-400); RBC Distribution Width 12.1 % (11.5-14.5); Red Blood Cell (RBC) Count 4.06 mill/uL (4.70-6.10); White Blood Cell (WBC) Count 8.1 thou/uL (4.8-10.8)
[2019-07-07 15:13] LABS: ALT (SGPT) 11 U/L (8-55); AST (SGOT) 13 U/L (5-34); Albumin 3.9 g/dL (3.4-4.8); Alkaline Phosphatase 79 U/L (40-110); Anion Gap 14 mmol/L (10-20); BUN (Urea Nitrogen) 23 mg/dL (8.4-25.7); Bilirubin, Total 0.6 mg/dL (0.2-1.2); Calc. Creatinine Clearance 0 mL/min (70-130); Calcium 8.8 mg/dL (7.8-10.44); Carbon Dioxide 20 mmol/L (23-31); Chloride 108 mmol/L (98-107); Estimated GFR-MDRD 70; Globulin 2.8 g/dL (2.4-3.5); Glucose 100 mg/dL (80-115); Potassium 4.2 mmol/L (3.5-5.1); Protein, Total 6.7 g/dL (5.8-8.1); Sodium 138 mmol/L (136-145)
[2019-07-07] MEDS ORDERED: cefTRIAXone\\ROCEPHIN 1 GM VIAL ONE (16:53)
== END 2019-07-07 17:49 | disposition home or self-care (01) ==
LOC: ERS 13:14
DX: R55 Syncope and collapse (principal); N30.90 Cystitis, unspecified without hematuria; I25.10 Atherosclerotic heart disease of native coronary artery without angina pectoris; I12.9 Hypertensive chronic kidney disease with stage 1 through stage 4 chronic kidney disease, or unspecified chronic kidney disease; N18.9 Chronic kidney disease, unspecified; I25.2 Old myocardial infarction; Z79.899 Other long term (current) drug therapy; Z79.82 Long term (current) use of aspirin
CPT/HCPCS: 36415; 71045; 80053; 81003; 81015; 84484; 85025; 93005; 96361; 96374; J0696